=== PATIENT | male | born 1930 | race Caucasian/White ===

== ENCOUNTER 2018-07-22 17:14 | Emergency (ER) | payer OTHER ==
--- NOTE | 2018-07-22 17:26 | EDPHY ---
H & P Time Seen by Provider: 07/22/18 17:16 HPI/ROS: CHIEF COMPLAINT: Chest pain HISTORY OF PRESENT ILLNESS: The patient is an 87-year-old man with history of COPD and myocardial infarction 20 years ago who comes to the emergency department complaining of left anterior chest pain that began about 3 hr ago. He had just finished helping his to the bathroom but states he did not injure it. It does not hurt with movement or palpation. He denies shortness of breath. No recent fevers. No GI symptoms. No palpitations, no lightheadedness. Severity: Moderate Modifying factors: None REVIEW OF SYSTEMS: Constitutional: denies: chills, fever, recent illness, recent injury EENTM: denies: blurred vision, double vision, nose congestion Respiratory: denies: cough, shortness of breath Cardiac: See HPI Gastrointestinal/Abdominal: denies: abdominal pain, diarrhea, nausea, vomiting, blood streaked stools Genitourinary: denies: dysuria, frequency, hematuria, pain Musculoskeletal: denies: joint pain, muscle pain Skin: denies: lesions, rash, jaundice, bruising Neurological: denies: headache, numbness, paresthesia, tingling, dizziness, weakness Hematologic/Lymphatic: denies: blood clots, easy bleeding, easy bruising Immunologic/allergic: denies: HIV/AIDS, transplant 10 systems reviewed and negative except as noted EXAM: GENERAL: Well-appearing, well-nourished and in no acute distress. HEAD: Atraumatic, normocephalic. EYES: Pupils equal round and reactive to light, extraocular movements intact, sclera anicteric, conjunctiva are normal. ENT: TMs normal, nares patent, oropharynx clear without exudates. Moist mucous membranes. NECK: Normal range of motion, supple without lymphadenopathy or JVD. LUNGS: Breath sounds clear to auscultation bilaterally and equal. No wheezes rales or rhonchi. HEART: Regular rate and rhythm without murmurs, rubs or gallops. ABDOMEN: Soft, nontender, normoactive bowel sounds. No guarding, no rebound. No masses appreciated. BACK: No CVA tenderness, no spinal tenderness, step-offs or deformities EXTREMITIES: Normal range of motion, no pitting or edema. No clubbing or cyanosis. NEUROLOGICAL: Cranial nerves II through XII grossly intact. Normal speech, normal gait. 5/5 strength, normal movement in all extremities, normal sensation , normal reflexes PSYCH: Normal mood, normal affect. SKIN: Warm, dry, normal turgor, no visible rashes or lesions. Source: Patient Exam Limitations: No limitations - Medical/Surgical History Hx Chronic Respiratory Disease: Yes Hx Diabetes: No Hx Cardiac Disease: Yes Hx Renal Disease: No Hx Cirrhosis: No Hx Alcoholism: No Hx HIV/AIDS: No - Family History Significant Family History: No pertinent family hx - Social History Smoking Status: Former smoker Alcohol Use: Sober Drug Use: None Constitutional: Initial Vital Signs Temperature (C) 36.5 C 07/22/18 17:31 Heart Rate 63 07/22/18 17:31 Respiratory Rate 16 07/22/18 17:31 Blood Pressure 144/89 H 07/22/18 17:31 O2 Sat (%) 92 07/22/18 17:31 O2 Delivery Mode Room Air Allergies/Adverse Reactions: No Known Allergies Allergy (Unverified 07/22/18 17:27) Home Medications: Medication Instructions Recorded Augmentin 125-31.25 mg/5 ml 07/22/18 Cyclobenzaprine HCl 07/22/18 Gaviscon Es Tablet Chew 07/22/18 Lyrica 07/22/18 Metamucil 07/22/18 Milk of Magnesia 07/22/18 PROVENTIL HFA 07/22/18 Sertraline HCl 07/22/18 Tylenol 07/22/18 Medical Decision Making - Diagnostics EKG Interpretation: An EKG obtained and was read and documented in trace view. Please see trace view for full reading and report. Sinus rhythm, no acute ischemic changes Imaging: Discussed imaging studies w/ manager call Radiologist ED Course/Re-evaluation: The patient's lab work and x-rays are reassuring. We discussed options. His HEART score is 3, low risk. Daughter is here now. We discussed the risks and benefits engaged in shared decision making and agreed to obtain a 2nd troponin 2 hr after the 1st. If this is negative he would prefer to go home and follow up with Cardiology for stress test in the outpatient setting. He is currently asymptomatic. He states that he has been asymptomatic ever since he got here and even at the facility. He is a little more clear on the history now and states that he had a near-syncope episode after taking his to the bathroom. It was associated with chest pain. It only lasted for about 30 sec and then resolved completely. I did offer admission but he declined this. 8:00 p.m. the patient remains asymptomatic. His repeat troponin is negative. He is eager to go home. We discussed follow-up with cardiology in the next 72 hr for stress testing. He and his family are happy with this plan. Differential Diagnosis: Partial list of the Differential diagnosis considered include but were not limited to; syncope, presyncope, acute coronary disease, arrhythmia and although unlikely based on the history and physical exam, I also considered infection, head injury, seizure, dehydration. I discussed these differential diagnoses and the plan with the patient as well as the usual and expected course. The patient understands that the diagnosis is provisional and that in medicine we are not always correct and that further workup is often warranted. Usual and customary warnings were given. All of the patient's questions were answered. The patient was instructed to return to the emergency department should the symptoms at all worsen or return, otherwise to followup with the physician as we discussed. - Data Points Laboratory Results: Laboratory Results 07/22/18 17:20 07/22/18 17:20 Point of Care Test Results: Chemistry 07/22/18 07/22/18 19:22 17:26 POC Troponin I 0.01 ng/mL ng/mL 0.01 ng/mL ng/mL (0.00-0.08) (0.00-0.08) Departure - Departure Disposition: Home, Routine, Self-Care Clinical Impression: Pre-syncope Chest pain Qualifiers: Chest pain type: unspecified Qualified Code(s): R07.9 - Chest pain, unspecified Condition: Fair Instructions: Chest Pain (ED), Near Syncope (ED) Referrals: Mariama Jane MD [Primary Care Provider] - As per Instructions
--- NOTE | 2018-07-22 17:39 | CPEKG ---
Test Reason : OPEN Blood Pressure : / mmHG Vent. Rate : 062 BPM Atrial Rate : 062 BPM P-R Int : 171 ms QRS Dur : 097 ms QT Int : 429 ms P-R-T Axes : 072 021 049 degrees QTc Int : 436 ms Sinus rhythm Confirmed by Kvng Leary ([id number]) on 07/22/2018 5:38:20 PM Referred By: Confirmed By:Kvng Leary
[2018-07-22 18:33] LABS: PLATELET COUNT 124 10^3/uL (150-400)
[2018-07-22 18:40] LABS: INR 0.96 (0.83-1.16)
[2018-07-22 20:23] VITALS: BP 180/92
== END 2018-07-22 20:45 | disposition home or self-care (01) ==
DX: R07.9 Chest pain, unspecified (principal); R55 Syncope and collapse; J44.9 Chronic obstructive pulmonary disease, unspecified; I25.2 Old myocardial infarction
CPT/HCPCS: 84484-PO

== ENCOUNTER 2018-07-26 17:17 | Inpatient (IN) | payer OTHER ==
--- NOTE | 2018-07-26 17:22 | EDPHY ---
H & P Time Seen by Provider: 07/26/18 17:22 HPI/ROS: CHIEF COMPLAINT: Dizziness HISTORY OF PRESENT ILLNESS: Patient had episode this past Tuesday of sudden onset of off balance at his facility. He was doing fine until today around 430 when his daughter was with him and suddenly started having trouble with his balance and staggering and trying to grab things on the wall. The patient says he still has dizziness. He can't describe it using any other words, but says it is worse when he moves his head or when he stands up. Not associated with nausea or headache or double vision or weakness or numbness in extremities or speech difficulty. Brought in by EMS, symptoms severe, unable to walk. REVIEW OF SYSTEMS: Eye: no change in vision ENT: no sore throat Cardiac: no chest pain or syncope Pulmonary: no cough or SOB Abdomen: no vomiting, diarrhea, abdominal pain Musculoskeletal: no back pain or neck pain Skin: no rash Neuro: no headache Constitutional: no fever : no urinary symptoms A comprehensive 10 point review of systems is otherwise negative aside from elements mentioned in the history of present illness. PAST MEDICAL HISTORY: Includes COPD, depression, mitral valve insufficiency, dementia. Peripheral neuropathy. Social history: Here with daughter General Appearance: Eyes closed but opens to voice. Cooperates with the exam. Eyes: No scleral icterus. Pupils equal reactive to light extraocular motion intact with nystagmus and reproduces symptoms looking to the right, nystagmus is horizontal. ENT, Mouth: Normal mucous membranes. Normal tympanic membranes. Respiratory: Normal respiratory effort, breath sounds equal, lungs are clear to auscultation. Cardiovascular: Regular rate and rhythm. Right carotid bruit. Gastrointestinal: Abdomen is soft and non tender. Neurological: Alert, face symmetric, normal motor and sensory in extremities. Can lift each leg independently off the bed, good can piler strength, no pronator drift, normal [id number] bilaterally. Speech fluent. Skin: Warm and dry, no rashes. Musculoskeletal: No peripheral edema. Psychiatric: Not agitated. Emergency Department course/MDM: Patient is disabling dizziness and unable to walk. Symptoms suggestive of peripheral vertigo but central vertebral basilar insufficiency also considered with right carotid murmur. Plan for CT head, EKG, labs, admission with angiography and Neurology consultation. 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 No stenosis or dissection in the posterior circulation. Smoking Status: Former smoker Constitutional: Initial Vital Signs Temperature (C) 36.8 C 07/26/18 17:22 Heart Rate 63 07/26/18 17:22 Respiratory Rate 18 07/26/18 17:22 Blood Pressure 118/61 07/26/18 17:22 O2 Sat (%) 85 L 07/26/18 17:22 O2 Delivery Mode Nasal Cannula O2 (L/minute) 2 Allergies/Adverse Reactions: No Known Allergies Allergy (Verified 07/26/18 17:22) Home Medications: Medication Instructions Recorded Acetaminophen [Tylenol 325mg (*)] 650 mg PO Q6 PRN 07/26/18 Albuterol [Proventil Inhaler HFA 1 - 2 puffs IH Q4H PRN 07/26/18 (*)] Aspirin EC [Aspirin EC 81 mg (*)] 81 mg PO DAILY 07/26/18 Atorvastatin Calcium [Lipitor 40 40 mg PO DAILY 07/26/18 mg (*)] Cyclobenzaprine [Flexeril 10 MG 10 mg PO BID PRN 07/26/18 (*)] Magnesium Carb/Aluminum Hydrox 2 each PO Q6H PRN 07/26/18 [Gaviscon Es Tablet Chew] Magnesium Hydroxide [Milk of 30 ml PO DAILY PRN 07/26/18 Magnesia] Pregabalin [Lyrica 50mg (*)] 50 mg PO BID 07/26/18 Psyllium Husk/Aspartame [Metamucil 3.4 gm PO DAILY PRN 07/26/18 Fiber Singles Packet] Sertraline HCl [Zoloft 50mg (*)] 50 mg PO DAILY 07/26/18 Medical Decision Making - Diagnostics EKG Interpretation: 12-lead EKG interpreted by me; official reading is in computer system. My interpretation is sinus rhythm rate 63 normal intervals and no ischemic changes Imaging Results: Imaging Impressions Head CT 07/26/18 17:43 Impression: Chronic mild paranasal sinus disease. Nothing acute identified. Results called to Dr. Reilly Lundy at 6:20 PM General information for patients regarding this examination can be found at [email or web address] If you have questions or comments about this report, please contact me at [phone] (hospital) or [phone] (cell). Chest X-Ray 07/26/18 18:43 Impression: Moderate bronchitis. Mild scarring or early infiltrate right lung base. Imaging: Discussed imaging studies w/ callisthenics instructor Radiologist Differential Diagnosis: Differential diagnosis considered for dizziness including but not limited to peripheral and central causes of vertigo, dissection or other vascular, orthostatic causes including dehydration, and blood loss. Consult/Admit Bed Type: [place] [id number] - Data Points Laboratory Results: Laboratory Results 07/26/18 18:15 07/26/18 18:15 07/26/18 07/26/18 07/26/18 18:20 18:15 18:15 WBC 5.49 10^3/uL 10^3/uL (3.80-9.50) RBC 4.16 10^6/uL L 10^6/uL (4.40-6.38) Hgb 12.4 g/dL L g/dL (13.7-17.5) Hct 37.0 % L % (40.0-51.0) MCV 88.9 fL fL (81.5-99.8) MCH 29.8 pg pg (27.9-34.1) MCHC 33.5 g/dL g/dL (32.4-36.7) RDW 15.5 % H % (11.5-15.2) Plt Count 115 10^3/uL L 10^3/uL (150-400) MPV 9.8 fL fL (8.7-11.7) Neut % (Auto) 62.4 % % (39.3-74.2) Lymph % (Auto) 27.5 % % (15.0-45.0) [place] % (Auto) 5.8 % % (4.5-13.0) Eos % (Auto) 2.9 % % (0.6-7.6) Baso % (Auto) 0.7 % % (0.3-1.7) Nucleat RBC Rel Count 0.0 % % (0.0-0.2) Absolute Neuts (auto) 3.42 10^3/uL 10^3/uL (1.70-6.50) Absolute Lymphs (auto) 1.51 10^3/uL 10^3/uL (1.00-3.00) Absolute Monos (auto) 0.32 10^3/uL 10^3/uL (0.30-0.80) Absolute Eos (auto) 0.16 10^3/uL 10^3/uL (0.03-0.40) Absolute Basos (auto) 0.04 10^3/uL 10^3/uL (0.02-0.10) Absolute Nucleated RBC 0.00 10^3/uL 10^3/uL (0-0.01) Immature Gran % 0.7 % % (0.0-1.1) Immature Gran # 0.04 10^3/uL 10^3/uL (0.00-0.10) Sodium 137 mEq/L mEq/L (135-145) Potassium 4.0 mEq/L mEq/L (3.3-5.0) Chloride 102 mEq/L mEq/L (97-110) Carbon Dioxide 22 mEq/l mEq/l (22-31) Anion Gap 13 mEq/L mEq/L (8-16) BUN 36 mg/dL H mg/dL (7-23) Creatinine 1.4 mg/dL H mg/dL (0.7-1.3) Estimated GFR 48 Glucose 134 mg/dL H mg/dL (70-100) Calcium 9.1 mg/dL mg/dL (8.5-10.4) POC Troponin I 0.00 ng/mL ng/mL (0.00-0.08) Point of Care Test Results: Chemistry 07/26/18 18:20 POC Troponin I 0.00 ng/mL ng/mL (0.00-0.08) Departure - Departure Disposition: [facility] Acute Clinical Impression: Dizziness Condition: Fair
[2018-07-26 18:37] LABS: PLATELET COUNT 115 10^3/uL (150-400)
--- NOTE | 2018-07-26 18:45 | CPEKG ---
Test Reason : OPEN Blood Pressure : / mmHG Vent. Rate : 063 BPM Atrial Rate : 062 BPM P-R Int : 166 ms QRS Dur : 092 ms QT Int : 431 ms P-R-T Axes : 083 045 065 degrees QTc Int : 442 ms Sinus rhythm Confirmed by Reilly Lundy ([id number]) on 07/26/2018 6:44:53 PM Referred By: Confirmed By:Reilly Lundy
[2018-07-26] MEDS ORDERED: IOPAMIDOL (ISOVUE 370) 100 ML BTL IV ONE (20:04)
[2018-07-26] MEDS ORDERED: ONDANSETRON DISINTEGRATING 4 MG TAB PO PRN (22:12)
[2018-07-26] MEDS ORDERED: ONDANSETRON 4 MG/2 ML VIAL IVP PRN (22:12)
[2018-07-26] MEDS ORDERED: ACETAMINOPHEN 325 MG TAB PO PRN (22:12)
--- NOTE | 2018-07-26 22:57 | PDGENHP ---
History and Physical - Chief Complaint Dizzy spells - History of Present Illness 87 yo M w/ hx of CAD presents with dizzy spells. The patient tells me he has been having these dizzy spells almost daily for about a year. He describes them as brief bouts of a spinning sensation that causes him to stumble. These episodes only last 2-3 seconds per his report. He denies associated symptoms such as chest pain or shortness of breath. He does describe an unrelated lower sternal/epi-gastric, squeezing discomfort that has been happening for the last few weeks. He states this seems random and happens a couple of times per day. He saw Dr. Duke in the office today and described these symptoms to him. Dr. Duke also noted a carotid bruit. He advised patient and daughter to go to the ED if he had another dizzy spell. He did in fact have another dizzy spell today so he was brought in to the ED for evaluation. At the time of my evaluation the patient is asymptomatic. He is resting comfortably in bed alert and fully oriented. Case discussed with Dr. Badillo; records reviewed in EMR and [employer] History Information - Allergies/Home Medication List Allergies/Adverse Reactions: No Known Allergies Allergy (Verified 07/26/18 17:22) Home Medications: Acetaminophen [Tylenol 325mg (*)] 650 mg PO Q6 PRN 07/26/18 [Last Taken Unknown] Albuterol [Proventil Inhaler HFA (*)] 1 - 2 puffs IH Q4H PRN 07/26/18 [Last Taken Unknown] Aspirin EC [Aspirin EC 81 mg (*)] 81 mg PO DAILY 07/26/18 [Last Taken Unknown] Atorvastatin Calcium [Lipitor 40 mg (*)] 40 mg PO DAILY 07/26/18 [Last Taken Unknown] Cyclobenzaprine [Flexeril 10 MG (*)] 10 mg PO BID PRN 07/26/18 [Last Taken Unknown] Magnesium Carb/Aluminum Hydrox [Gaviscon Es Tablet Chew] 2 each PO Q6H PRN 07/26 [Last Taken Unknown] Magnesium Hydroxide [Milk of Magnesia] 30 ml PO DAILY PRN 07/26/18 [Last Taken Unknown] Pregabalin [Lyrica 50mg (*)] 50 mg PO BID 07/26/18 [Last Taken Unknown] Psyllium Husk/Aspartame [Metamucil Fiber Singles Packet] 3.4 gm PO DAILY PRN 01/08 [Last Taken Unknown] Sertraline HCl [Zoloft 50mg (*)] 50 mg PO DAILY 07/26/18 [Last Taken Unknown] I have personally reviewed and updated: family history, medical history - Past Medical History coronary artery disease, COPD - Surgical History Additional surgical history: Bilateral "gland tumor" removal - Family History Additional family history: Mother and daughter have epilepsy - Social History Smoking Status: Former smoker Review of Systems Review of Systems: ROS: 10pt was reviewed & negative except for what was stated in HPI & below Physical Exam Physical Exam: Temp Pulse Resp BP Pulse Ox 36.8 C 71 17 162/85 H 93 07/26/18 22:33 07/26/18 22:33 07/26/18 22:33 07/26/18 22:33 07/26/18 22:33 O2 (L/minute) 2 Constitutional: no apparent distress, not in pain Eyes: PERRL, EOMI Ears, Nose, Mouth, Throat: moist mucous membranes, no oral mucosal ulcers Cardiovascular: regular rate and rhythym, systolic murmur Respiratory: no respiratory distress, clear to auscultation Gastrointestinal: normoactive bowel sounds, soft, non-tender abdomen Skin: warm, normal color Musculoskeletal: full muscle strength, no muscle tenderness Neurologic: AAOx3, CN II-XII Intact Psychiatric: interacting appropriately, not anxious Lab Data & Imaging Review 07/26/18 18:15 07/26/18 18:15 WBC 5.49 10^3/uL (3.80-9.50) 07/26/18 18:15 RBC 4.16 10^6/uL (4.40-6.38) L 07/26/18 18:15 Hgb 12.4 g/dL (13.7-17.5) L 07/26/18 18:15 Hct 37.0 % (40.0-51.0) L 07/26/18 18:15 MCV 88.9 fL (81.5-99.8) 07/26/18 18:15 MCH 29.8 pg (27.9-34.1) 07/26/18 18:15 MCHC 33.5 g/dL (32.4-36.7) 07/26/18 18:15 RDW 15.5 % (11.5-15.2) H 07/26/18 18:15 Plt Count 115 10^3/uL (150-400) L 07/26/18 18:15 MPV 9.8 fL (8.7-11.7) 07/26/18 18:15 Neut % (Auto) 62.4 % (39.3-74.2) 07/26/18 18:15 Lymph % (Auto) 27.5 % (15.0-45.0) 07/26/18 18:15 Brewster % (Auto) 5.8 % (4.5-13.0) 07/26/18 18:15 Eos % (Auto) 2.9 % (0.6-7.6) 07/26/18 18:15 Baso % (Auto) 0.7 % (0.3-1.7) 07/26/18 18:15 Nucleat RBC Rel Count 0.0 % (0.0-0.2) 07/26/18 18:15 Absolute Neuts (auto) 3.42 10^3/uL (1.70-6.50) 07/26/18 18:15 Absolute Lymphs (auto) 1.51 10^3/uL (1.00-3.00) 07/26/18 18:15 Absolute Monos (auto) 0.32 10^3/uL (0.30-0.80) 07/26/18 18:15 Absolute Eos (auto) 0.16 10^3/uL (0.03-0.40) 07/26/18 18:15 Absolute Basos (auto) 0.04 10^3/uL (0.02-0.10) 07/26/18 18:15 Absolute Nucleated RBC 0.00 10^3/uL (0-0.01) 07/26/18 18:15 Immature Gran % 0.7 % (0.0-1.1) 07/26/18 18:15 Immature Gran # 0.04 10^3/uL (0.00-0.10) 07/26/18 18:15 Sodium 137 mEq/L (135-145) 07/26/18 18:15 Potassium 4.0 mEq/L (3.3-5.0) 07/26/18 18:15 Chloride 102 mEq/L (97-110) 07/26/18 18:15 Carbon Dioxide 22 mEq/l (22-31) 07/26/18 18:15 Anion Gap 13 mEq/L (8-16) 07/26/18 18:15 BUN 36 mg/dL (7-23) H 07/26/18 18:15 Creatinine 1.4 mg/dL (0.7-1.3) H 07/26/18 18:15 Estimated GFR 48 07/26/18 18:15 Glucose 134 mg/dL (70-100) H 07/26/18 18:15 Calcium 9.1 mg/dL (8.5-10.4) 07/26/18 18:15 POC Troponin I 0.00 ng/mL (0.00-0.08) 07/26/18 18:20 Imaging Review: Imaging Impressions Head CT 07/26/18 17:43 Impression: Chronic mild paranasal sinus disease. Nothing acute identified. Results called to Dr. Reilly Lundy at 6:20 PM General information for patients regarding this examination can be found at [email or web address]. If you have questions or comments about this report, please contact me at [phone] (hospital) or [phone] (cell). Chest X-Ray 07/26/18 18:43 Impression: Moderate bronchitis. Mild scarring or early infiltrate right lung base. Head CTA 07/26/18 19:20 Impression: 1. Evidence of atherosclerotic change of the carotid bulb and proximal internal carotid artery bilaterally, with 50 to 60% stenosis. On the right, there is an irregular ulcerated plaque. Approximately 50% stenosis at the origin of the left common carotid artery. Approximately 50% stenosis at the origin of the vertebral arteries bilaterally. 2. 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 3. 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 4. Pleuroparenchymal scarring bilaterally, more severe in the right upper lobe toward the apex. Evidence of prior granulomatous disease. CT Angiogram of the Brain Clinical Indications: Dizzy, right carotid bruit, ataxia.. Technique: CT angiogram of the brain was performed, with the uneventful intravenous administration of 100 mL Isovue-370 contrast. Multiplanar reconstructions including 3D reconstructions performed and evaluated on [employer] workstation in order to better evaluate the false pass of De Jesus vessels. Images were manipulated by the radiologist at the computer workstation. Dose reduction techniques were utilized. Findings: Major vessels of the false pass of De Jesus are adequately displayed, demonstrating no evidence of aneurysm, vascular malformation, flow-limiting stenosis, or occlusion. Bilateral cavernous internal carotid arteries and vertebrobasilar system demonstrates no evidence of flow-limiting stenosis, aneurysm, occlusion, or dissection. Superior sagittal sinus, transverse sinuses , and major veins demonstrate no evidence of intraluminal thrombi. Vascular calcifications indicating intracranial atherosclerotic disease, without flow- limiting stenosis. Impression: Intracranial atherosclerotic change, without flow-limiting stenosis. Results called and discussed with Reilly Lundy M.D., on July 26, 2018 at 2129. Measurement of carotid stenosis is based on the residual internal carotid diameter with [place] Symptomatic Carotid Endarterectomy Trial (NASCET) based stenosis levels. Neck CTA 07/26/18 19:20 Impression: 1. Evidence of atherosclerotic change of the carotid bulb and proximal internal carotid artery bilaterally, with 50 to 60% stenosis. On the right, there is an irregular ulcerated plaque. Approximately 50% stenosis at the origin of the left common carotid artery. Approximately 50% stenosis at the origin of the vertebral arteries bilaterally. 2. 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 3. 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 4. Pleuroparenchymal scarring bilaterally, more severe in the right upper lobe toward the apex. Evidence of prior granulomatous disease. CT Angiogram of the Brain Clinical Indications: Dizzy, right carotid bruit, ataxia.. Technique: CT angiogram of the brain was performed, with the uneventful intravenous administration of 100 mL Isovue-370 contrast. Multiplanar reconstructions including 3D reconstructions performed and evaluated on [employer] workstation in order to better evaluate the false pass of De Jesus vessels. Images were manipulated by the radiologist at the computer workstation. Dose reduction techniques were utilized. Findings: Major vessels of the false pass of De Jesus are adequately displayed, demonstrating no evidence of aneurysm, vascular malformation, flow-limiting stenosis, or occlusion. Bilateral cavernous internal carotid arteries and vertebrobasilar system demonstrates no evidence of flow-limiting stenosis, aneurysm, occlusion, or dissection. Superior sagittal sinus, transverse sinuses , and major veins demonstrate no evidence of intraluminal thrombi. Vascular calcifications indicating intracranial atherosclerotic disease, without flow- limiting stenosis. Impression: Intracranial atherosclerotic change, without flow-limiting stenosis. Results called and discussed with Reilly Lundy M.D., on July 26, 2018 at 2129. Measurement of carotid stenosis is based on the residual internal carotid diameter with [place] Symptomatic Carotid Endarterectomy Trial (NASCET) based stenosis levels. Visualized and Interpreted EKG results: Yes EKG Interpretation: Positive for: normal sinsus rhythm Assessment & Plan Assessment: 87 yo M w/ hx of CAD and COPD presents with dizzy spells. Plan: 1. Dizzy spells - Patient describes these as brief dizzy spells causing him to stumble; they have been occurring almost daily for about a year. He denies associated symptoms. He has no persistent neurologic symptoms during my evaluation. CTH in the ED revealed no acute changes but CTA Head/Neck did show bilateral 50-60% stenosis, irregular plaque on the R, and carotid body tumor on the L. It is unclear if these could be contributing. Noting hx of CAD, cardiac etiologies could also be contributing. - Admit for observation - Monitor on telemetry - Obtain MRI and TTE for further evaluation - Neurology consultation placed 2. Chest discomfort - Atypical lower sternal/epi-gastric, "squeezing" discomfort with seemingly random onset. This has been presents for 2-3 weeks per patient and has no clear association with his dizzy spells. He does have a history of CAD with SC in the 1970's. ECG (personally reviewed/interpreted) reveals no signs of ischemia; troponin negative. 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 - I discussed case with Dr. Trammell of general surgery who suggested contacting Dr. Guillermo Oh during daytime hours tomorrow to discuss management options 4. CAD - Hx of SC in the 1970's. - Continue ASA, statin 5. COPD - No evidence of acute exacerbation. - Continue albuterol PRN Diet - Regular Code - Full Ppx - SCDs Dispo - Admit under observation status
[2018-07-26] MEDS ORDERED: NS 1,000 ML IV SCH (23:00)
[2018-07-27 05:05] LABS: PLATELET COUNT 101 10^3/uL (150-400)
[2018-07-27] MEDS ORDERED: ALBUTEROL 60 PUFFS/8 GM MDI IH PRN (07:33)
--- NOTE | 2018-07-27 08:25 | HOSPPROG ---
Hospitalist Progress Note Assessment/Plan: 87 yo M w/ hx of CAD and COPD presents with dizzy spells. Reviewed his care with Dr Good who admitted Azeb last night. Today is my first encounter w the patient, chart reviewed. *dizzy spells -awaiting MRI -patient takes prn Flexeril which may make these symptoms worse -also, has some underlying anemia -CT of head showed nothing acute -CTA of head and neck showed bilateral 50-60% stenosis, irregular plaque on the r and carotid body tumor on the left -MRI and echo pending -neurology to see -check orthostatics -spoke w his daughter and he has been dizzy for year *chest discomfort -EKG shows no ischemia -further review of echo -first trop negative *carotid stenosis -will f/u with Dr Oh, needs a CEA -plan is for Tuesday *carotid body tumor -reviewed this w Dr Oh, he is recommending a angiogram to get a biopsy and embolize if he were to have surgery -updated his daughter Elina to further discuss *CAD -continue ASA and statin -hx of WA in the s -sees Dr Duke in the OP setting -will need evaluation prior to surgery *COPD -no s/sx of exacerbation *Plan: MRI and Echo pending, reviewed tele and he is in sinus rhythm; poss dc later today after all studies are finished Subjective: Azeb wants to go home today, has no complaints. Objective: Vital Signs Temp Pulse Resp BP Pulse Ox 36.8 C 60 14 126/62 H 93 07/27/18 07:42 07/27/18 07:42 07/27/18 07:42 07/27/18 07:42 07/27/18 07:42 Laboratory Results 07/27/18 04:30 07/27/18 04:30 - Physical Exam Constitutional: no apparent distress, appears nourished, not in pain Eyes: PERRL Ears, Nose, Mouth, Throat: hearing normal Cardiovascular: regular rate and rhythym, carotid bruit (right side) Respiratory: no respiratory distress Skin: warm Musculoskeletal: full muscle strength Neurologic: AAOx3, CN II-XII Intact, No facial droop Psychiatric: poor memory ICD10 Worksheet Patient Problems: Problems Problem Status Onset Dizziness Acute Chest pain Acute Pre-syncope Acute
[2018-07-27] MEDS: PREGABALIN 50 MG CAP PO SCH ×2 (08:27→20:17)
[2018-07-27] MEDS: ATORVASTATIN CALCIUM 40 MG TAB PO SCH (08:27)
[2018-07-27] MEDS: SERTRALINE HCL 50 MG TAB PO SCH (08:27)
[2018-07-27] MEDS: ASPIRIN EC 81 MG TAB PO SCH (08:27)
[2018-07-27] MEDS ORDERED: PSYLLIUM METAMUCIL 1 PKT PO PRN (09:00)
--- NOTE | 2018-07-27 09:46 | ASMTLACE ---
CARLOS Acuity / Level of Answers: Yes Care: Did the patient have an inpatient admission? Comorbidities - select Answers: Chronic pulmonary disease all that apply Coronary Artery Disease Dementia # of Emergency department Answers: 1-2 visits in the last 6 months Social determinants Answers: Mental health diagnosis (anxiety, depression, pers onality disorders, etc.) Score: 14 Date Signed: 07/27/2018 09:45 AM Electronically Signed By:Ina Pascual
--- NOTE | 2018-07-27 10:06 | GCON ---
NEUROLOGY CONSULT REFERRING PHYSICIAN: August Good MD CHIEF COMPLAINT: Dizzy spells. HISTORY OF PRESENT ILLNESS: The patient is a very pleasant 87-year-old gentleman who has been having symptoms of 3-5 seconds of lightheadedness on a daily basis for the last 1 year. Yesterday however, he was apparently at his certified pharmacist assistant's office and described the symptoms and was found to have a carotid bruit and was instructed to come to the emergency department. CT head showed nothing acute. He had angiogram of the head and neck. Angiography of the neck showed bilateral 50% to 60% stenosis on the right. There was some irregular ulcerated plaque noted. There was also a mass at the left carotid bifurcation suggestive of a carotid body tumor. Angiography of the brain showed atherosclerosis without flow-limiting stenosis. The patient, himself, describes no other problems or symptoms outside of the 3-5 second lightheadedness feelings without aggravating or alleviating factors. On initial evaluation, the patient was also found to be anemic. In addition he is on daily muscle relaxants which could cause the symptoms REVIEW OF SYSTEMS: Ten-point review of system was done, only pertinent to the HPI. PAST MEDICAL, SOCIAL, FAMILY HISTORY/HOME MEDICATIONS/ALLERGIES: See Dr. Good's note. PHYSICAL EXAMINATION: VITAL SIGNS: Blood pressure 126/62, temperature 36.8, heart rate 60. GENERAL: The patient is awake, alert in no acute distress. NEURO: Cranial nerve exam 2 through 7 is normal. Motor exam: Normal strength , tone, and reflexes throughout. Sensory normal to light touch. Coordination is normal in all extremities. IMPRESSION/PLAN: 1. Dizzy spells. 2. Carotid body tumor. 3. Carotid atherosclerosis. 4. Anemia. 5. Psychotropic medication use. The patient's dizzy spells are somewhat nonspecific and may be related to multiple etiologies. The patient is on daily muscle relaxant, which could be tapered off to see if this improves or resolves his spells. I think this would be the first change in medication. In addition, anemia could cause these spells. I defer to Hospital Medicine on further evaluation and treatment of this. Finally, the patient does have some carotid atherosclerosis and a left-sided lesion suggestive of a carotid body tumor. He does not describe focal transient ischemic attacks referable to either carotid at this point; however, he has seen surgery, Dr. Oh, I would defer to Dr. Oh regarding further management of his carotid atherosclerosis in terms of an interventional standpoint and further evaluation and treatment of the carotid lesion. In the interim, he certainly would need to be on an anti-platelet along with statin therapy for vascular prophylaxis. Further vascular surgery workup could be done as an inpatient or outpatient, I would defer to that service. I understand he may be discharging later today. I would be happy to see him as an outpatient and will arrange for that in 6-8 weeks to review if symptoms have improved off muscle relaxants. No further recommendations now. Plan discussed in detail with the hospitalist team and surgery team. 45 total minutes floor time reviewing imaging, history, direct counseling, and coordination of care. /[id number]/MODL MTDD
--- NOTE | 2018-07-27 11:25 | ASMTCMCOM ---
CM Note CM Note Notes: CM reviewed pt's chart for d/c planning. Pt is a 87y/o male with hx of CAD who presented at the ED with dizzy spells that make him stumble. These episodes last 2-3 seconds and have been present for the last year. Pt presented to the ED with chest pain on 07/22/2018. 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 He also c/o an unrelated lower sternal/epigastric, squeezing discomfort that has been happening for the last few weeks. He states this seems random and occurs a couple of times per day. Prior to presenting to the ED he saw his physician who noted a carotid bruit. Pt is being d/siri today and will return home with no CM needs. Per hospitalist, he will return Tuesday for surgery on his carotid. D/C Summary: Independent Date Signed: 07/27/2018 11:23 AM Electronically Signed By:Latasha Whitten
--- NOTE | 2018-07-27 11:33 | ASMTLACE ---
LACE Length of stay for Answers: Less than 1 day current admission Acuity / Level of Answers: Yes Care: Did the patient have an inpatient admission? Comorbidities - select Answers: Chronic pulmonary disease all that apply Coronary Artery Disease Dementia # of Emergency department Answers: 1-2 visits in the last 6 months Social determinants Answers: Mental health diagnosis (anxiety, depression, pers onality disorders, etc.) Score: 14 Date Signed: 07/27/2018 11:24 AM Electronically Signed By:Latasha Whitten
--- NOTE | 2018-07-27 13:30 | ECHO ---
[email or web address] [address] [address] Main: [phone] Fax: Transthoracic Echocardiogram Name: RADHA WINTER MR#: [id number] Study Date: 07/27/2018 Study Time: 11:41 AM Date of : 1930 Age: 87 year(s) Height: 182.9 cm (72 in.) Weight: 86.18 kg (190 lb.) BSA: 2.08 m2 Gender: Male Examination: Echo with Agitated Saline Indication: dizzy spells, hx cad Image Quality: Adequate Contrast: I.V. dose of agitated saline Requested by: August Greene BP: 110 mmHg/42 mmHg Heart Rate: Rhythm: Indication: dizzy spells, hx cad Procedure Staff Comptroller: Charisma Bryant [facility] Reading Physician: Juanjo Damon MD Requesting Provider: Conclusions: Normal size left ventricle. Normal global systolic LV function. EF is 71 %. No regional wall motion abnormality. Grade 2 diastolic dysfunction (pseudonormalized LV filling pattern). An agitated saline study was performed and was negative for intracardiac shunting. Trivial to mild mitral regurgitation. Mild tricuspid regurgitation is present. Right ventricular systolic pressure measures 40mmHg. Measurements: Chambers Valvular Assessment AV/MV Valvular Assessment TV/PV Normal Normal Normal Name Value Range Name Value Range Name Value Range Ao Marcela (MM): 3.4 cm (2.2 cm-3.7 AV Vmax: 1.77 m/s (1 m/s-1.7 TR Vmax: 2.97 mm/s ( - ) cm) m/s) TR PGmax: 35 mmHg ( - ) IVSd (2D): 1.1 cm (0.6 cm-1.1 AV maxP mmHg ( - ) syst. PAP: 40 mmHg ( - ) cm) LVOT Vmax: 1.07 m/s (0.7 m/s-1.1 PV Vmax: 1.16 m/s (0.6 m/s-0.9 LVDd (2D): 4.8 cm (4.2 cm-5.9 m/s) m/s) cm) AKOSUA (Vmax): 2.1 cm2 ( - ) PV PGmax: 5 mmHg ( - ) LVDs (2D): 3.3 cm (2.1 cm-4 MV E Vmax: 0.80 m/s ( - ) cm) MV A Vmax: 0.61 m/s ( - ) LVPWd (2D): 0.9 cm (0.6 cm-1 MV E/A: 1.31 ( - ) cm) LVOTd 2.1 cm 2.1 cm mm LVEF (BP): 71 % (>=55 %) RVDd(2D): 3.0 cm (1.9 cm-3.8 cmmm) Continued Measurements: Patient: RADHA WINTER Study Date: 07/27/2018 Page 1 of 2 11:41 AM Chambers Valvular Assessment AV/MV Valvular Assessment TV/PV Name Value Name Value Name Value LADs Lon.0 cm MV DecTime: 197 m/s CVP (est.): 5 mmHg LA Area: 25.5 cm2 MV E' Septal: 0.07 m/s LA Volume: 74 ml MV E/E' Septal: 11.10 LA Volume Index: 35.6 ml/m2 MV E/E' Lateral: 11.10 TAPSE: 2.6 cm RA Area: 15.3 cm2 Findings: Left Ventricle: Normal size left ventricle. Borderline concentric LV hypertrophy. Normal global systolic LV function. EF is 71 %. No regional wall motion abnormality. Grade 2 diastolic dysfunction (pseudonormalized LV filling pattern). Right Ventricle: Normal size right ventricle. Normal RV function. Left Atrium: An agitated saline study was performed and was negative for intracardiac shunting. Right Atrium: The right atrium is normal in size. Mitral Valve: The mitral valve is normal in appearance and function. Trivial to mild mitral regurgitation. No mitral stenosis is present. Aortic Valve: The aortic valve is tri-leaflet and functions normally. There is no aortic valve regurgitation. No aortic valve stenosis is present. Tricuspid Valve: The tricuspid valve is normal in appearance and function. Mild tricuspid regurgitation is present. Right ventricular systolic pressure measures 40mmHg. The pulmonary artery pressure is mildly increased. Pulmonic Valve: Pulmonary valve not well visualized. Trivial pulmonic valve regurgitation. Aorta: Normal size aortic root measuring 3.4 cm. IVC: Normal size and course of the IVC. Pericardium: No pericardial effusion. (No Signature Object) Patient: RADHA WINTER Study Date: 07/27/2018 Page 2 of 2 11:41 AM [id number]
--- NOTE | 2018-07-27 14:29 | ASMTCMCOM ---
CM Note CM Note Notes: Pt is now being kept overnight. He is having an MRI today and will be receiving a stress test tomorrow. Pt lives at [facility], independently, with his . He will be returning there when d/c'ed. CM to follow if needs change. D/C Plan: Independent at [facility]. Date Signed: 07/27/2018 02:29 PM Electronically Signed By:Latasha Whitten
--- NOTE | 2018-07-27 14:38 | GCON ---
CHIEF COMPLAINT: Dizziness. HISTORY OF PRESENT ILLNESS: This is an 87-year-old male with a history of coronary artery disease and COPD who presented to the emergency room yesterday complaining of dizzy spells. He reports that he has been having these dizzy spells very frequently for the past year. They last for about 2-3 seconds each and cause a spinning sensation that causes him to stumble. He underwent a head and neck CT angiogram at the time of admission. These revealed evidence of atherosclerotic change of the carotid bulb and proximal internal carotid artery bilaterally with 50%-60% stenosis. On the right side, there is an irregular ulcerated plaque. 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 At this time, the patient reports that he feels well. He denies any current dizziness, chest pain, shortness of breath, or stroke-like symptoms. PAST MEDICAL HISTORY: Coronary artery disease, COPD. PAST SURGICAL HISTORY: Bilateral "gland tumor" removal. FAMILY HISTORY: Noncontributory. SOCIAL HISTORY: Nonsmoker. MEDICATIONS: Tylenol, albuterol, aspirin 81 mg daily, atorvastatin 40 mg daily , cyclobenzaprine 10 mg b.i.d. as needed, Gaviscon ES tablet 2, milk of magnesia p.r.n., Lyrica 50 mg b.i.d., Metamucil fiber 3.4 g daily as needed, Zoloft 50 mg daily. REVIEW OF SYSTEMS: 10-point review of systems was performed and is negative, except for what is in the HPI. PHYSICAL EXAM: GENERAL: This is a very pleasant 87-year-old male sitting up in his hospital bed in no acute distress. HEENT: Normocephalic, atraumatic. Pupils are equal and round. No scleral icterus. Mucous membranes are moist. NECK: No cervical lymphadenopathy. Tenderness to palpation inferior to the angle of the mandible bilaterally. No palpable masses. CARDIOVASCULAR: Regular rate and rhythm. No clicks, murmurs, or rubs. Carotid bruit present on the right side, no carotid bruit present on the left side. RESPIRATORY: Clear to auscultation bilaterally. No increased work of breathing. ABDOMEN: Soft, nontender, nondistended. Normoactive bowel sounds. SKIN: Warm and dry. No rashes. MUSCULOSKELETAL: Moves all extremities equally, full muscle strength. NEUROLOGIC: He is alert and oriented x3. Cranial nerves 2-12 are grossly intact. PSYCHIATRIC: Appropriate mood and affect. IMPRESSION/PLAN: This is an 87-year-old male who is currently admitted to the hospital for episodes of dizziness. A head and neck CT angiogram upon admission revealed irregular ulcerated plaque in the right carotid artery. Also revealed a mass at the left carotid bifurcation that is suggestive of a carotid body tumor. This patient was seen by Dr. Oh and myself. The CT images were personally reviewed. Dr. Oh feels that the most pressing issue at this point is the stenosis and irregularity of the plaque in the patient's right carotid artery. We will plan for a right carotid endarterectomy on Tuesday. This patient does not need to be hospitalized through the weekend and can be a direct admit on Tuesday, if need be. 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 Given its location, it is relatively inaccessible to surgically excise. If it does need to be excised, Dr. Oh recommends that the patient undergo an angiogram and embolization due to the high vascularity of the mass prior to any surgery. The other option is to have the patient undergo a needle aspiration biopsy in Interventional Radiology. In any case, this mass is not an urgent concern, especially given the patient's age. We will plan for a right carotid endarterectomy surgery for Tuesday. We discussed all risks and options and the patient would like to proceed. Risks of surgery include, but are not limited to infection, bleeding, stroke, heart attack, and . Patient understands and wishes to proceed. /[id number]/MODL MTDD
--- NOTE | 2018-07-27 15:39 | GCON ---
DATE OF CONSULTATION: 07/27/2018 We are asked by the hospitalist to consult regarding upcoming carotid surgery and his cardiac status. HISTORY OF PRESENT ILLNESS: This is an 87-year-old male with a history of coronary artery disease an d dizzy spells over the last year. The episodes are typically brief, lasting up to 3-4 seconds. He was seen at [facility] by Dr. Mic Duke yesterday, July 26, 2018. He was noted to have a car otid bruit. He also has a history of coronary artery disease, having a heart attack in 1974. He rep orts having intermittent chest discomfort, the last time being 2 weeks ago. This was a left-sided dis comfort that started very intense and then let up. The duration of the episode was up to 15 minutes. He has not had further episodes since that time. He has been found to have carotid stenosis and is being currently worked up prior to surgery. He has had a CTA of the neck and head and a CT of the h ead. At time of my visit, he is feeling well. He has not felt dizzy while lying in bed, he has been able to answer my questions appropriately and is very talkative. He has recently had an EKG that tristan wed no indication of ischemia. He also had troponins drawn in the emergency room on 07/22/2018 that were negative. At this time, he is resting comfortably. PAST MEDICAL HISTORY: He has a history of coronary artery disease with DC, COPD, mitral valve insuff iciency, dementia, peripheral neuropathy. PAST SURGICAL HISTORY: Bilateral removal of a gland tumor. FAMILY HISTORY: No significant family history of coronary disease. SOCIAL HISTORY: Former tobacco abuse. No history of alcohol use. REVIEW OF SYSTEMS: A 10-point review of system was negative except that stated in the HPI. PHYSICAL EXAM: CONSTITUTIONAL: Well nourished, well developed, individual. EYES: Sclerae white. Pupils equal. NECK: No nodules or masses. RESPIRATORY: Breathing is nonlabored. Normal breath kenia nds on auscultation. No chest wall tenderness. CARDIOVASCULAR: Regular heart rate with normal rhyt hm. Systolic murmur noted. GASTROINTESTINAL: Abdomen soft and nontender. Bowel sounds are normal. No tenderness or guarding. SKIN: No rashes or lesions noted. NEURO: He is alert and oriented x3. PSYCHIATRIC: Interacting appropriately. IMPRESSION AND PLAN: It is recommended prior to surgery for his carotid stenosis that he have an ech ocardiogram to further evaluate his heart structure and valve. He will also need to have a nuclear s tress test to evaluate his reported chest pain with known past myocardial infarction. We will plan for an echocardiogram today, which has already been ordered and a Lexiscan nuclear stres s test, which will have to be done tomorrow as he has had caffeine today. This was discussed with eva parker and he is in agreement with this plan. If his echocardiogram and Lexiscan nuclear stress test are stable, he can proceed with the planned ca rotid surgery. Thank you very much for asking us to be a part of this individual's care. /[id number]/MODL
[2018-07-28] MEDS ORDERED: REGADENOSON 0.4 MG/5 ML SYR IVP ONE (08:58)
--- NOTE | 2018-07-28 09:54 | PDMN ---
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
[2018-07-28] MEDS: SERTRALINE HCL 50 MG TAB PO SCH (10:16)
[2018-07-28] MEDS: ASPIRIN EC 81 MG TAB PO SCH (10:16)
[2018-07-28] MEDS: ATORVASTATIN CALCIUM 40 MG TAB PO SCH (10:16)
[2018-07-28] MEDS: PREGABALIN 50 MG CAP PO SCH (10:16)
--- NOTE | 2018-07-28 11:16 | HOSPPROG ---
Hospitalist Progress Note Assessment/Plan: 87 yo M w/ hx of CAD and COPD presents with dizzy spells. *dizzy spells -patient takes prn Flexeril which may make these symptoms worse -also, has some underlying anemia -CT of head showed nothing acute -CTA of head and neck showed bilateral 50-60% stenosis, irregular plaque on the r and carotid body tumor on the left -MRI showed no acute ischemia but atrophy -has + orthostasis -has not been dizzy during this hospital stay -spoke w his daughter and he has been dizzy for year *chest discomfort -EKG shows no ischemia -further review of echo -first trop negative *carotid stenosis -will f/u with Dr Oh, needs a CEA -plan is for Tuesday *carotid body tumor -reviewed this w Dr Oh, he is recommending a angiogram to get a biopsy and embolize if he were to have surgery -updated his daughter Elina to further discuss *CAD -continue ASA and statin -hx of ME in the 1969's -sees Dr Duke in the OP setting -awaiting stress test results as well as echo *COPD -no s/sx of exacerbation *Plan: stop Flexeril, will evaluate his echo and stress test images; dc hopefully later today Subjective: Azeb has no complaints, anxious to be discharged. Objective: Vital Signs Temp Pulse Resp BP Pulse Ox 36.6 C 58 L 16 155/69 H 96 07/28/18 08:00 07/28/18 08:00 07/28/18 08:00 07/28/18 08:00 07/28/18 08:00 07/27/18 07/28/18 07/29/18 05:59 05:59 05:59 Intake Total 650 Balance 650 - Physical Exam Constitutional: no apparent distress, appears nourished, not in pain Eyes: PERRL Ears, Nose, Mouth, Throat: hearing normal Cardiovascular: regular rate and rhythym, carotid bruit (right) Respiratory: no respiratory distress Skin: warm Musculoskeletal: full muscle strength Neurologic: CN II-XII Intact, No weakness, No numbness, No pronator drift, No facial droop Psychiatric: interacting appropriately, poor memory ICD10 Worksheet Patient Problems: Problems Problem Status Onset Dizziness Acute Chest pain Acute Pre-syncope Acute
[2018-07-28 11:25] VITALS: BP 162/85
--- NOTE | 2018-07-28 11:43 | ASMTCMCOM ---
CM Note CM Note Notes: Received a call from Chauncey at , pt lives there with in their Memory Care apts. They help pt with medications and other minor cares. She requests dc paperwork, otherwise pt is discharging today without needs. DC Plan: [facility] Date Signed: 07/28/2018 11:43 AM Electronically Signed By:Mary Lujan RN
--- NOTE | 2018-07-28 13:31 | SOAPPROG ---
LANCE Progress Note Assessment/Plan: Assessment: NO REAL CHANGE TODAY. APPARENTLY DOING WELL WITH HIS CARDIAC EVALUATION RISKS AND OPTIONS FULLY DISCUSSED WITH THE PATIENT AND HIS DAUGHTER GABE WILL PLAN ON RIGHT CAROTID ENDARTERECTOMY ON TUESDAY AND THEN FURTHER EVALUATION DOWN THE LINE OF HIS LEFT NECK TUMOR NEURO EXAM INTACT HEENT BRUIT ON THE RIGHT CHEST CLEAR COR REGULAR RHYTHM IMPRESSION RIGHT CAROTID STENOSIS AND/OR DISSECTION Plan: RIGHT CAROTID ENDARTERECTOMY NEXT WEEK 07/28/18 13:29 Objective: Vital Signs Temp Pulse Resp BP Pulse Ox 36.6 C 63 18 162/85 H 91 L 07/28/18 11:23 07/28/18 11:23 07/28/18 11:23 07/28/18 11:23 07/28/18 11:23 07/27/18 07/28/18 07/29/18 05:59 05:59 05:59 Intake Total 650 Balance 650 ICD10 Worksheet Patient Problems: Problems Problem Status Onset Dizziness Acute Chest pain Acute Pre-syncope Acute
--- NOTE | 2018-07-28 14:04 | PDCARPN ---
Cardiology Progress Note Chief Complaint: Dizziness Assessment/Plan: Assessment: Carotid Artery Dz-- He was found to have significant right carotid obstruction. He is scheduled for Surgery Tuesday08/07/18. For surgery clearance, he needed to be cardiac evaluated, due to his known past Myocardial Infarction in 1974. "Echocardiogram" done 07/26/18 showed EF 71% w/ no WMA, No ssignificant valve abnormalities No intra-cardiac shunting. RVSP 40 mmhg--mildly increased. Aortic root Normal at 3.4 cm. No pericardial Effusion. "Nuclear Lexisan Stress test 07/28/18 shows EF Normal. NWMA, No Ischemia. Fixed uptake inferolateral area- due to diaphragmatic Attenuation. He feels well today. He should have no cardiac contraindications to proceed with upcoming Carotid surgery. Plan: Stable for discharge, and upcoming Carotid surgery. 07/28/18 13:53 Subjective: I feel good today. Ready to go home. Reviewed/Discussed With: hospitalist, multidisciplinary team Time Spent with Patient: greater than 25 minutes Time Spent with Patient: Greater than 25 minutes spent on this patients care, greater than 50% of time spent counseling, educating, and coordinating care regarding the above mentioned plan. Objective: Vital Signs (8 Hrs) Temp Pulse Resp BP Pulse Ox 07/28/18 11:23 36.6 C 63 18 162/85 H 91 L 07/28/18 08:00 36.6 C 58 L 16 155/69 H 96 Intake/Output (24 Hrs) 07/27/18 07/28/18 07/29/18 05:59 05:59 05:59 Intake Total 650 Balance 650 Intake: Oral (ml) 650 Other: Number of Voids Toilet 2 1 Result Diagrams: 07/27/18 04:30 07/27/18 04:30 - Physical Exam Constitutional: no apparent distress Cardiovascular: other (Regular Heart Rate) Respiratory: other (No labored breathing) Skin: warm Neurologic: AAOx3 ICD10 Worksheet Patient Problems: Problems Problem Status Onset Chest pain Acute Pre-syncope Acute Dizziness Acute
--- NOTE | 2018-07-28 15:25 | GDS ---
DISCHARGE DIAGNOSES: 1. Dizzy spells. 2. Chest discomfort. 3. Carotid stenosis. 4. Carotid body tumor. 5. Coronary artery disease. 6. Chronic obstructive pulmonary disease. CONSULTATIONS: 1. Elvis Stokes MD. 2. Jami Forman, nurse practitioner with surgical services. 3. Torie Galan, nurse practitioner with Cardiology Services. HISTORY OF PRESENT ILLNESS: Briefly, Azeb Moreno is a very sweet, 87-year-old gentleman, who has bee n having dizzy spells for approximately a year. He gets these bouts of spinning sensation that cause him to stumble. He was in Dr. Duke's office prior to being admitted and had these symptoms. Dr. Duke noted that he had a carotid bruit and he advised the patient and daughter to go to the emergen cy room if the symptoms reoccur. Subsequently, they did. In the emergency room he had a CT of his he ad, which showed nothing acute identified. The head and neck CTA showed atherosclerotic change of the carotid bulb and proximal internal carotid artery bilaterally with 50% to 60% stenosis. On the right there was an irregular ulcerative plaque. He has at approximately 50% stenosis at the origin of the left common carotid artery, approximately 50% stenosis at the origin of the vertebral arteries bilate rally. In addition, it noted that he had a mass at the left carotid bifurcation suggestive of a chen tid body tumor. He was subsequently seen and evaluated by Dr. Oh, who evaluated the results of is and the recommendation was to get further workup in regard to the carotid body tumor after he gets a carotid endarterectomy, which is scheduled. Of note, the patient has been having some chest discom fort. He was seen and evaluated by Cardiology. A myocardial perfusion scan was performed. This tristan wed a normal LV ejection fraction of 67%. He had no focal wall motion abnormalities. He had no isch emia. He has a fixed decreased uptake inferolateral wall on stress and rest imaging and upon review of chest x-ray it is probably related to diaphragmatic attenuation and less likely from an infarct. Today, he will be discharged home. The plan is for him to return to the hospital for a scheduled CEA with Dr. Oh on Tuesday morning. HOSPITAL COURSE PER PROBLEM: 1. Dizzy spells. I discontinued his Flexeril which has helped his symptoms. In addition, he is not ed to have orthostasis when going from lying to standing. Reviewed with the patient and his daughter to stop the Flexeril and to get up from lying to standing slowly. I also explained to them that a C EA of his right carotid may or may not help his dizzy spells. 2. Chest discomfort. His EKG shows no ischemia. His troponin is negative. His myocardial perfusio n scan shows no ischemia. 3. Carotid stenosis. Further follow up this next Tuesday with Dr. Oh. He will get a carotid enda rterectomy. 4. Carotid body tumor. This will get further evaluation after he gets his right carotid taken care of. 5. Coronary artery disease. Continue aspirin and statin therapy. 6. COPD, not having any type of acute exacerbation. DISCHARGE CONDITION: Stable. VITAL SIGNS: Blood pressure is 162/85, heart rate is 63, respiratory rate of 18, O2 saturation on ro om air 91%, temperature is 36.6 Celsius. MEDICATIONS AT DISCHARGE: Please see the EMR. DISCHARGE INSTRUCTIONS: 1. To call Dr. Oh office to verify the time he is to be here. 2. Spoke to surgery and they recommended to leave his aspirin as done. 3. If he develops any type of stroke symptoms, to return to the ER. Greater than 30 minutes discharging and coordinating the patient's care. /[id number]/MODL
--- NOTE | 2018-07-28 15:35 | ASDISCHSUM ---
Discharge Information Plan Status:Assisted Living Medically Cleared to Leave: Discharge Date:07/28/2018 02:00 PM D/C Disposition:Assisted Living ADT D/C Disposition:Home, Routine, Self-Care Projected Discharge Date:07/28/2018 11:00 AM Transportation at D/C:Family Discharge Delay Reason: Follow-Up Date:07/28/2018 11:00 AM Discharge Slot: Final Diagnosis: Placement Information Referral Type:*Group Home/SNF Referral ID:[id number] Provider Name:[facility] Address 1:[address] Address 2: City:[place] Selection Factors: State:[place] Patient Contact Information Contact Name:MAURA Relationship:Daughter Address:[address] Work Phone: [facility]:[place] Alternate Phone: State/Zip Code:[place] [address] Email: Financial Information Financial Class:Medicare Primary Plan Desc:MEDICARE INPATIENT Primary Plan Number:[id number] Secondary Plan Desc:[facility] Secondary Plan Number:[id number] Assessment Information LACE LACE Acuity / Level of Answers: Yes Care: Did the patient have an inpatient admission? Comorbidities - select Answers: Chronic pulmonary disease all that apply Coronary Artery Disease Dementia # of Emergency department Answers: 1-2 visits in the last 6 months Social determinants Answers: Mental health diagnosis (anxiety, depression, pers onality disorders, etc.) Score: 14 Date Signed: 07/27/2018 09:45 AM Electronically Signed By:Ina Pascual [facility] CM Progress Note CM Note CM Note Notes: CM reviewed pt's chart for d/c planning. Pt is a 87y/o male with hx of CAD who presented at the ED with dizzy spells that make him stumble. These episodes last 2-3 seconds and have been present for the last year. Pt presented to the ED with chest pain on 07/22/2018. Following tests he was d/siri with the plan to follow up with his hand i tube bender. He also c/o an unrelated lower sternal/epigastric, squeezing discomfort that has been happening for the last few weeks. He states this seems random and occurs a couple of times per day. Prior to presenting to the ED he saw his physician who noted a carotid bruit. Pt is being d/siri today and will return home with no CM needs. Per hospitalist, he will return Tuesday for surgery on his carotid. D/C Summary: Independent Date Signed: 07/27/2018 11:23 AM Electronically Signed By:Latasha Whitten LACE LACE Length of stay for Answers: Less than 1 day current admission Acuity / Level of Answers: Yes Care: Did the patient have an inpatient admission? Comorbidities - select Answers: Chronic pulmonary disease all that apply Coronary Artery Disease Dementia # of Emergency department Answers: 1-2 visits in the last 6 months Social determinants Answers: Mental health diagnosis (anxiety, depression, pers onality disorders, etc.) Score: 14 Date Signed: 07/27/2018 11:24 AM Electronically Signed By:Latasha Whitten [facility] CM Progress Note CM Note CM Note Notes: Pt is now being kept overnight. He is having an MRI today and will be receiving a stress test tomorrow. Pt lives at [facility], independently, with his . He will be returning there when d/c'ed. CM to follow if needs change. D/C Plan: Independent at [facility]. Date Signed: 07/27/2018 02:29 PM Electronically Signed By:Latasha Whitten [facility] Progress Note CM Note CM Note Notes: Received a call from Chauncey at , pt lives there with in their Memory Care apts. They help pt with medications and other minor cares. She requests dc paperwork, otherwise pt is discharging today without needs. DC Plan: [facility] Date Signed: 07/28/2018 11:43 AM Electronically Signed By:Mary Lujan RN Intervention Information Intervention Type:*Incorrect Registration Date of Service:07/26/2018 11:46 AM Patient Type:Inpatient Staff Member:WANDY Morales Courtney Hours: Discipline: Severity: Comment: Intervention Type:*GERALD-Signed Date of Service:07/27/2018 04:12 PM Patient Type:Observation Staff Member:Ina Pascual Hours: Discipline: Severity: Comment:
--- NOTE | 2018-07-28 16:09 | CPR ---
DATE OF PROCEDURE: 07/28/2018 REASON FOR TEST: 1. History of OH. 2. Carotid artery disease. 3. Evaluation prior to surgery. FINDINGS: Resting EKG shows a sinus bradycardia with a rate of 58. Resting blood pressure 110/70, o xygen saturation 96%. He is asymptomatic. STRESS PORTION LEXISCAN NUCLEAR STRESS TEST: Lexiscan was injected rapidly, followed by saline flush . Cardiolite was then injected, followed by saline flush. He remained asymptomatic throughout the s tress portion. EKG remained unchanged. Blood pressure 106/60, peak heart rate 65, oxygen saturation 94%. RECOVERY: He did spontaneously recover. He remained asymptomatic with no EKG changes. Resting bloo d pressure 112/64, resting heart rate 64, oxygen saturation 96%. At this time, he currently is stabl e for nuclear imaging. /[id number]/MODL
[2018-07-31] MEDS ORDERED: ceFAZolin 2 GM/DEXTROSE 100 ML IV ONE (08:00)
[2018-07-31] MEDS ORDERED: fentaNYL 100 MCG/2 ML INJ IVP PRN (08:24)
[2018-07-31] MEDS ORDERED: ONDANSETRON 4 MG/2 ML VIAL IVP PRN (08:24)
[2018-07-31] MEDS ORDERED: ALBUTEROL 3 ML DEYVIAL IH PRN (08:24)
[2018-07-31] MEDS ORDERED: NALOXONE HCL 0.4 MG/ML INJ IVP PRN (08:24)
== END 2018-07-28 14:00 | disposition home or self-care (01) | DRG 68 ==
LOC: EDUNIT# → INTOOBSV 19:35 → F3E 20:52 → OBSVTOIN 07-27 14:52
PROVIDERS: ADMIT Internal Medicine; ATTEND Internal Medicine
DX: I65.23 Occlusion and stenosis of bilateral carotid arteries (principal); I25.10 Atherosclerotic heart disease of native coronary artery without angina pectoris; J44.9 Chronic obstructive pulmonary disease, unspecified; Z87.891 Personal history of nicotine dependence; I25.2 Old myocardial infarction; G62.9 Polyneuropathy, unspecified
CPT/HCPCS: 84484-PO; A9500; G0378; J2785; Q9967

== ENCOUNTER 2018-07-28 15:04 | Inpatient (IN) | payer OTHER ==
[2018-07-31] MEDS ORDERED: LR 1,000 ML IV ONE (07:10)
--- NOTE | 2018-07-31 07:20 | PDHPUP ---
History & Physical Update H&P update statement: This history and physical update is based on an assessment of the patient which was completed after admission or registration (within 24 hours), but prior to the surgery/procedure. H&P update: H&P reviewed & patient examined, changes noted H&P changes: s/p hospital stay last week and now here for R CEA for critical carotid stenosis. Risks and options discussed including stroke and and he requests to proceed.
[2018-07-31] MEDS ORDERED: PROPOFOL/EMULSION 500 MG/50 ML BOTTLE IV ONE ×2 (08:11)
[2018-07-31] MEDS ORDERED: REMIFENTANIL HCL 1 MG VIAL ONE ×2 (08:12)
[2018-07-31] MEDS ORDERED: PHENYLEPHRINE HCL 100 MCG/ML SYR ONE (08:16)
[2018-07-31] MEDS ORDERED: HEPARIN 10,000 UNIT/10 ML MDV (1,000 UNIT/ML) ONE (08:18)
--- NOTE | 2018-07-31 08:24 | PDANEPAE ---
ANE History of Present Illness R CEA ANE Past Medical History - Cardiovascular History Hx Hypertension: Yes Hx Coronary Artery / Peripheral Vascular Disease: Yes - Pulmonary History Hx COPD: Yes Hx Oxygen in Use at Home: No Hx Sleep Apnea: No - Endocrine History Hx Diabetes: No - Neurological & Psychiatric Hx Neurological / Psychiatric History Comment: Dementia ANE Review of Systems Review of Systems: ANE Patient History - Allergies Allergies/Adverse Reactions: No Known Allergies Allergy (Verified 07/26/18 17:22) - Home Medications Home Medications: Acetaminophen [Tylenol 325mg (*)] 650 mg PO Q6 PRN 07/26/18 [Last Taken 07/30/18 ] Albuterol [Proventil Inhaler HFA (*)] 1 - 2 puffs IH Q4H PRN 07/26/18 [Last Taken 07/30/18] Aspirin EC [Aspirin EC 81 mg (*)] 81 mg PO DAILY 07/26/18 [Last Taken 07/30/18] Atorvastatin Calcium [Lipitor 40 mg (*)] 40 mg PO DAILY 07/26/18 [Last Taken 05/10] Magnesium Carb/Aluminum Hydrox [Gaviscon Es Tablet Chew] 2 each PO Q6H PRN 07/26 [Last Taken 07/30/18] Magnesium Hydroxide [Milk of Magnesia] 30 ml PO DAILY PRN 07/26/18 [Last Taken 07/30/18] Pregabalin [Lyrica 50mg (*)] 50 mg PO BID 07/26/18 [Last Taken 07/30/18] Psyllium Husk/Aspartame [Metamucil Fiber Singles Packet] 3.4 gm PO DAILY PRN 01/08 [Last Taken 07/30/18] Sertraline HCl [Zoloft 50mg (*)] 50 mg PO DAILY 07/26/18 [Last Taken 07/30/18] Loratadine 10 mg PO DAILY 07/31/18 [Last Taken 07/30/18] - Smoking Hx Smoking Status: Former smoker ANE Labs/Vital Signs - Vital Signs Blood Pressure: 162/85 Heart Rate: 63 Respiratory Rate: 18 O2 Sat (%): 91 Height: 182.88 cm Weight: 86.183 kg ANE Physical Exam - Airway Neck exam: FROM Mallampati Score: Class 2 Mouth exam: normal dental/mouth exam - Pulmonary Pulmonary: clear to auscultation - Cardiovascular Cardiovascular: regular rate and rhythym - ASA Status ASA Status: III ANE Anesthesia Plan Anesthesia Plan: general endotracheal anesthesia Lines/Monitors: arterial line Total IV Anesthesia: Yes
[2018-07-31] MEDS: ceFAZolin 2 GM/DEXTROSE 100 ML IV ONE ×2 (08:33→13:11)
[2018-07-31] MEDS ORDERED: DEXAMETHASONE 4 MG/ML VIAL ONE (09:58)
[2018-07-31] MEDS ORDERED: ONDANSETRON 4 MG/2 ML VIAL ONE (09:58)
[2018-07-31] MEDS ORDERED: ePHEDrine SULFATE 25 MG/5 ML SYR ONE (09:58)
[2018-07-31] MEDS: niCARdipine/NACL/200 ML BAG IV ONE ×2 (10:00→13:10)
[2018-07-31] MEDS: PROTAMINE SULFATE 50 MG/5 ML VIAL IVP ONE ×4 (10:00→15:18)
[2018-07-31] MEDS: THROMBIN (BOVINE) 20,000 UNIT SPRAY TP ONE ×4 (10:00→15:13)
[2018-07-31] MEDS ORDERED: ENALAPRILAT DIHYDRATE 1.25 MG/ML VIAL IVP PRN (10:33)
[2018-07-31] MEDS ORDERED: ONDANSETRON 4 MG/2 ML VIAL IVP PRN (10:33)
[2018-07-31] MEDS ORDERED: HYDROmorphONE/DILAUDID 1 MG/ML INJ IVP PRN (10:33)
--- NOTE | 2018-07-31 10:33 | POSTOPPROG ---
Post Op Note Date of Operation: 07/31/18 Surgeon: Kurtis Oh Inside Polisher: Adelaida Alves Anesthesiologist: Ceferino Galvan Anesthesia: GET(General Endotracheal) Pre-op Diagnosis: critical R carotid stenosis Post-op Diagnosis: same Procedure: R CEA c EEG monitoring and patch closure, cervical LN biopsy Findings: focal ulcerated plaque, ext carotid a. previously ligated, no EEG changes Inf/Abcess present in the surg proc area at time of surgery?: No EBL: 50-100 Complications: none Specimen(s): plaque and LN to pathology
[2018-07-31] MEDS ORDERED: NS 1,000 ML IV SCH (10:45)
--- NOTE | 2018-07-31 10:45 | POSTANESTH ---
Post Anesthetic Evaluation Cardiovascular Status: Normal, Stable Respiratory Status: Normal, Stable Level of Consciousness/Mental Status: Can Participate in Eval, Mildly Sleepy, Arousable Pain Control: Adequate, Prn Tx Ordered Nausea/Vomiting Control: Adequate, Prn Tx Ordered Complications Possibly Related to Anesthesia: None Noted
[2018-07-31] MEDS: BUPIVACAINE 0.5% 30 ML SDV ONE ×4 (13:08→15:07)
[2018-07-31] MEDS: OXYCODONE/APAP 5/325 TAB PO PRN ×2 (13:27→19:32)
[2018-08-01] MEDS: OXYCODONE/APAP 5/325 TAB PO PRN ×2 (01:01→07:20)
--- NOTE | 2018-08-01 09:49 | ASMTCMCOM ---
CM Note CM Note Notes: 87yr old male admitted for Carotid stenosis, CP, Pre-syncope, Dizziness. He has a Hx of CAD, COPD, Carotid body tumor. Patient had a R endarterectomy. Patient lives with his at [facility] and his daughter is his MPOA. Plans are for patient to return home with his . No other needs anticipated. Date Signed: 08/01/2018 09:48 AM Electronically Signed By:Ashtyn Handley LCSW
--- NOTE | 2018-08-01 11:13 | SOAPPROG ---
SOAP Progress Note Assessment/Plan: Assessment/Plan: POD#1 s/p R CEA. Doing well. BP stable. Neuro intact. Weaned from O2. D/c to home. No complaints. Alert, nad inc well dressed neuro intact no wob rrr 08/01/18 11:11 Objective: Vital Signs Temp Pulse Resp BP Pulse Ox 37.0 C 62 15 126/70 H 89 L 08/01/18 07:34 08/01/18 10:00 08/01/18 07:34 08/01/18 07:34 08/01/18 10:00 07/31/18 08/01/18 08/02/18 05:59 05:59 05:59 Intake Total 3548 Output Total 1620 Balance 1928 ICD10 Worksheet Patient Problems: Problems Problem Status Onset Chest pain Acute Dizziness Acute Pre-syncope Acute
[2018-08-01 11:22] VITALS: BP 113/86
--- NOTE | 2018-08-01 11:26 | ASDISCHSUM ---
Discharge Information Plan Status:Home with No Needs Medically Cleared to Leave:08/01/2018 Discharge Date:08/01/2018 CM D/C Disposition:Home, Routine, Self-Care ADT D/C Disposition:Home, Routine, Self-Care Projected Discharge Date:08/01/2018 01:00 PM Transportation at D/C:Family Discharge Delay Reason: Follow-Up Date:08/01/2018 01:00 PM Discharge Slot:2 - 12:01 pm - 18:00 pm Final Diagnosis:Carotid stenosis Placement Information Patient Contact Information Contact Name:MAURA Relationship:Daughter Address:[address] Work Phone: [facility]:[place] Alternate Phone: [facility]/Zip Code:[place] [address] Email: Financial Information Financial Class:Medicare Primary Plan Desc:MEDICARE INPATIENT Primary Plan Number:[id number] Secondary Plan Desc:[facility] Secondary Plan Number:[id number] Assessment Information LACE LACE Length of stay for Answers: Less than 1 day current admission Acuity / Level of Answers: Yes Care: Did the patient have an inpatient admission? Comorbidities - select Answers: Chronic pulmonary disease all that apply Coronary Artery Disease Dementia Other Notes: HTN # of Emergency department Answers: 1-2 visits in the last 6 months Social determinants Answers: Mental health diagnosis (anxiety, depression, pers onality disorders, etc.) Score: 15 Date Signed: 08/01/2018 11:25 AM Electronically Signed By:Ashtyn Handley LCSW [facility] Progress Note CM Sanju CM Note Notes: 87yr old male admitted for Carotid stenosis, CP, Pre-syncope, Dizziness. He has a Hx of CAD, COPD, Carotid body tumor. Patient had a R endarterectomy. Patient lives with his at [facility] and his daughter is his MPOA. Plans are for patient to return home with his . No other needs anticipated. Date Signed: 08/01/2018 09:48 AM Electronically Signed By:Ashtyn Handley LCSW Case Management Discharge Plan Note Case Management Discharge Discharge Order Complete? Answers: Yes Patient to Obtain Answers: via Family Medications Transportation Arranged Answers: Family/Friends Transport will Pick (Date 08/01/2018 01:00 PM & Time) Family Notified Answers: Yes Notes: Family to transport Discharge Comments Notes: Patient has been discharged home with . No needs. Date Signed: 08/01/2018 11:24 AM Electronically Signed By:Ashtyn Handley LCSW Intervention Information
[2018-08-02] MEDS ORDERED: ENOXAPARIN 40 MG/0.4 ML SYR SC SCH (09:00)
--- NOTE | 2018-08-04 04:28 | GOP ---
DATE OF OPERATION: 07/31/2018 SURGEON: Kurtis Oh MD DIGITAL ART DIRECTOR: Adelaida Alves, JAYESH. ANESTHESIOLOGIST: Ceferino Galvan DO. PREOPERATIVE DIAGNOSIS: Critical right carotid stenosis with probable dissection. 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 PROCEDURE PERFORMED: Right carotid endarterectomy with EEG monitoring, patch closure and cervical ly mph node biopsy. FINDINGS: The patient was found to have enlarged deep cervical nodes near the carotid bifurcation. 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 It is also interesting that the external carotid artery had previously been ligated. There were no EEG changes and the patient awoke moving all extremities. DESCRIPTION OF PROCEDURE: The patient was taken to the operating room where he received satisfactory general endotracheal anesthesia by Dr. Galvan, placed in the supine position, and prepped and draped in the usual sterile fashion. The patient had been systemically heparinized prior to induction of an esthesia. An incision was made along the anterior border of the sternocleidomastoid muscle and hiram ed down through a previous old scar and down through the platysma and subcutaneous tissue, and throug h the superficial fascia. The artery was quite superficial. Some veins crossing the artery were royer jasson ligated and divided, but the common facial vein appeared to have already been sacrificed. The ca rotid arterial tree was dissected free. It became apparent that the external carotid artery had been previously ligated and transected. The internal carotid artery was dissected free and encircled wit h a vessel loop as was the common carotid artery. After adequate exposure, additional heparin was gi alecia and after adequate circulation time, the vessels were occluded. Incision was made in the common carotid artery extending up through the ulcerated plaque and dissection of the origin of the internal carotid artery. There was excellent backflow. A shunt was not required. Expeditious endarterectom y was then done, removing the ulcerated plaque and dissected intima away from the arterial wall. Goo d feathered end was achieved in the internal carotid artery. The specimen was removed. The wound wa s copiously irrigated. All vessels were flushed. Arteriotomy was then closed using a Dacron patch a nd suturing in place with a Hemashield 7 suture. All vessels were again flushed prior to completion of the suture line, which was then completed. Flow was slowly reestablished. The suture line appear ed to be hemostatic. Heparin was reversed with protamine. The wound was irrigated. Hemostasis was thoroughly obtained. The wound was sprayed with some topical thrombin, and the posterior skin and sharif bcutaneous tissue were infiltrated with 0.5% Marcaine. The superficial fascia was closed with a runn ing 3-0 Vicryl suture. Then the platysma was closed in a similar manner and the skin with a 3-0 [place] cryl subcuticular stitch. The wounds were dressed with Steri-Strips. He tolerated the procedure wel l and was taken to the recovery room in good condition. There were no complications. /[id number]/MODL
== END 2018-08-01 12:23 | disposition home or self-care (01) | DRG 39 ==
LOC: F3E 07-31 06:48 → F2N 07-31 11:51
PROVIDERS: ADMIT Surgery; ATTEND Surgery
DX: I65.21 Occlusion and stenosis of right carotid artery (principal); R59.0 Localized enlarged lymph nodes; I10 Essential (primary) hypertension; J44.9 Chronic obstructive pulmonary disease, unspecified; F03.90 Unspecified dementia, unspecified severity, without behavioral disturbance, psychotic disturbance, mood disturbance, and anxiety; I25.10 Atherosclerotic heart disease of native coronary artery without angina pectoris
CPT/HCPCS: C1768; J0690; J1100; J1644; J2370; J2405; J2704; J2720

== ENCOUNTER 2018-08-06 17:00 | Inpatient (IN) | payer OTHER ==
--- NOTE | 2018-08-06 17:17 | EDPHY ---
H & P Stated Complaint: BIBA from [facility] for malaise and low grade fever of 99 Time Seen by Provider: 08/06/18 17:04 HPI/ROS: Chief complaint: Dizziness, weakness, hypoxia History of present illness: This is an 87-year-old male brought in by ambulance from [facility] where he is recovering after carotid endarterectomy performed 6 days ago. Patient was seen in this emergency department prior to that for dizziness. He was admitted. Ultimately there was concern for carotid stenosis and he had an outpatient carotid end arterectomy. He has been recovering well. However today usp staff note patient seemed weaker than usual. On my evaluation he reports feeling mildly dizzy which is how he initially felt at the onset of all of his symptoms before the surgery. He also reports generalized malaise. However he denies other associated signs or symptoms including no pain at the surgical site, no headache, no weakness or paralysis of the extremities, no difficulty speaking, no cough, no difficulty breathing, no chest pain, no pain or swelling in the legs. Review of systems: A 10 point review of systems was obtained and other than described above was negative. - Personal History Current Tetanus Diphtheria and Acellular Pertussis (TDAP): Yes - Medical/Surgical History Hx Asthma: No Hx Chronic Respiratory Disease: Yes Hx Diabetes: No Hx Cardiac Disease: Yes Hx Renal Disease: No Hx Cirrhosis: No Hx Alcoholism: No Hx HIV/AIDS: No Hx Splenectomy or Spleen Trauma: No Other PMH: COPD, depression, mitral valve insufficiancy, peripheral neuropathy, PNA, R corotid "blockage" - Social History Smoking Status: Former smoker - Physical Exam Exam: General Appearance: Alert, nontoxic. Patient is 77% on room air at presentation , he is placed on nasal cannula 2 liters/minute and his oxygenation remains in the mid 90s. Eyes: Pupils equal and round no pallor or injection. ENT, Mouth: Mucous membranes moist. Respiratory: Rales are noted in the left lower lung field otherwise clear to auscultation bilaterally. Cardiovascular: Regular rate and rhythm. Gastrointestinal: Abdomen is soft and non tender, no masses, bowel sounds normal. Neurological: Alert. Cranial nerves 2-12 grossly intact. Strength and sensation intact and symmetrical. Skin: Surgical incisions site on the right side of the neck appears to be healing well. Associated bruising. Musculoskeletal: Neck is supple non tender. Extremities are symmetrical, full range of motion. Psychiatric: Appropriate affect. Constitutional: Initial Vital Signs Temperature (C) 36.5 C 08/06/18 17:05 Heart Rate 65 08/06/18 17:05 Respiratory Rate 16 08/06/18 17:05 Blood Pressure 129/68 H 08/06/18 17:05 O2 Sat (%) 77 L 08/06/18 17:05 O2 Delivery Mode Nasal Cannula O2 (L/minute) 2 Allergies/Adverse Reactions: No Known Allergies Allergy (Verified 07/26/18 17:22) Home Medications: Medication Instructions Recorded Acetaminophen [Tylenol 325mg (*)] 650 mg PO Q6 PRN 07/26/18 Albuterol [Proventil Inhaler HFA 1 - 2 puffs IH Q4H PRN 07/26/18 (*)] Aspirin EC [Aspirin EC 81 mg (*)] 81 mg PO DAILY 07/26/18 Atorvastatin Calcium [Lipitor 40 40 mg PO DAILY 07/26/18 mg (*)] Magnesium Carb/Aluminum Hydrox 2 each PO Q6H PRN 07/26/18 [Gaviscon Es Tablet Chew] Magnesium Hydroxide [Milk of 30 ml PO DAILY PRN 07/26/18 Magnesia] Pregabalin [Lyrica 50mg (*)] 50 mg PO BID 07/26/18 Psyllium Husk/Aspartame [Metamucil 3.4 gm PO DAILY PRN 07/26/18 Fiber Singles Packet] Sertraline HCl [Zoloft 50mg (*)] 50 mg PO DAILY 07/26/18 Loratadine 10 mg PO DAILY 07/31/18 oxyCODONE/APAP 5/325 [Percocet 1 - 2 tab PO Q4HRS PRN #20 tab 08/01/18 5/325 (*)] Medical Decision Making - Diagnostics Imaging Results: Imaging Impressions Chest X-Ray 08/06/18 17:12 Impression: 1. Mild pulmonary venous hypertension. 2. No pneumothorax. Chest/Thorax CTA 08/06/18 19:28 Impression: 1. No definite pulmonary thromboemboli. 2. Coronary atherosclerosis and atherosclerotic aorta without aneurysm or dissection. 3. Left lower lobe and lingular opacities which may represent acute pneumonia. 4. Asymmetric right lung apex 22 x 10 mm irregular nodular density, which may represent asymmetric right apical pleuroparenchymal scarring or neoplasm. Recommend Follow-up nuclear medicine PET scan when the patient's medical condition permits or CT chest in three months. 5. No pleural effusion or pneumothorax. Findings and recommendations discussed with emergency department physician animal assistant, Rogers Modi PA-C at 2007 hours on August 06, 2018. Final report concurs with initial preliminary interpretation. A test result has been communicated to a licensed care provider and documented in the [facility] Critical Result system on 08/06/2018 20:08, Message ID [id number]. Imaging: Discussed imaging studies w/ rehab technician Radiologist, I viewed and interpreted images myself ED Course/Re-evaluation: Patient has been discussed with my primary supervising physician Dr. Maria E Garcia. Patient comes in with dizziness, weakness and hypoxia. Evaluation ultimately is concerning for a left lower lobe pneumonia. He has an otherwise unremarkable workup except he remains hypoxic. I have consulted with the on- call hospitalist, Dr. Damian Langston. He will accept this patient for admission. He asked that I withhold antibiotics, nebulizer, steroids etc... until he has evaluated the patient as patient is stable. Patient is admitted. Patient voiced understanding and agreement with plan. Differential Diagnosis: Included but not limited to respiratory infections including pneumonia - Data Points Laboratory Results: Laboratory Results 08/06/18 17:18 08/06/18 17:18 08/06/18 08/06/18 08/06/18 18:48 17:35 17:18 WBC RBC Hgb Hct MCV MCH MCHC RDW Plt Count MPV Neut % (Auto) Lymph % (Auto) [place] % (Auto) Eos % (Auto) Baso % (Auto) Nucleat RBC Rel Count Absolute Neuts (auto) Absolute Lymphs (auto) Absolute Monos (auto) Absolute Eos (auto) Absolute Basos (auto) Absolute Nucleated RBC Immature Gran % Immature Gran # PT INR APTT VBG Lactic Acid Sodium Potassium Chloride Carbon Dioxide Anion Gap BUN Creatinine Estimated GFR Glucose Calcium POC Troponin I 0.00 ng/mL ng/mL (0.00-0.08) NT-Pro-B Natriuret Pep 131 pg/mL pg/mL (0-450) Procalcitonin 0.06 ng/mL ng/mL (0.02-0.10) TSH 5.370 uIU/mL H uIU/mL (0.465-4.680) Urine Color YELLOW Urine Appearance CLEAR Urine pH 6.0 (5.0-7.5) Ur Specific [place] 1.017 (1.002-1.030) Urine Protein NEGATIVE (NEGATIVE) Urine Ketones NEGATIVE (NEGATIVE) Urine Blood 2+ H (NEGATIVE) Urine Nitrate NEGATIVE (NEGATIVE) Urine Bilirubin NEGATIVE (NEGATIVE) Urine Urobilinogen NEGATIVE EU EU (0.2-1.0) Ur Leukocyte Esterase NEGATIVE (NEGATIVE) Urine RBC 50-182 /hpf H /hpf (0-3) Urine WBC 1-3 /hpf /hpf (0-3) Ur Epithelial Cells TRACE /lpf /lpf (NONE-1+) Urine Glucose NEGATIVE (NEGATIVE) 08/06/18 08/06/18 08/06/18 17:18 17:18 17:18 WBC 6.09 10^3/uL 10^3/uL (3.80-9.50) RBC 3.93 10^6/uL L 10^6/uL (4.40-6.38) Hgb 11.7 g/dL L g/dL (13.7-17.5) Hct 35.5 % L % (40.0-51.0) MCV 90.3 fL fL (81.5-99.8) MCH 29.8 pg pg (27.9-34.1) MCHC 33.0 g/dL g/dL (32.4-36.7) RDW 15.1 % % (11.5-15.2) Plt Count 144 10^3/uL L 10^3/uL (150-400) MPV 9.7 fL fL (8.7-11.7) Neut % (Auto) 59.7 % % (39.3-74.2) Lymph % (Auto) 25.1 % % (15.0-45.0) [place] % (Auto) 8.4 % % (4.5-13.0) Eos % (Auto) 4.4 % % (0.6-7.6) Baso % (Auto) 0.8 % % (0.3-1.7) Nucleat RBC Rel Count 0.0 % % (0.0-0.2) Absolute Neuts (auto) 3.63 10^3/uL 10^3/uL (1.70-6.50) Absolute Lymphs (auto) 1.53 10^3/uL 10^3/uL (1.00-3.00) Absolute Monos (auto) 0.51 10^3/uL 10^3/uL (0.30-0.80) Absolute Eos (auto) 0.27 10^3/uL 10^3/uL (0.03-0.40) Absolute Basos (auto) 0.05 10^3/uL 10^3/uL (0.02-0.10) Absolute Nucleated RBC 0.00 10^3/uL 10^3/uL (0-0.01) Immature Gran % 1.6 % H % (0.0-1.1) Immature Gran # 0.10 10^3/uL 10^3/uL (0.00-0.10) PT 13.5 SEC SEC (12.0-15.0) INR 1.01 (0.83-1.16) APTT 28.1 SEC SEC (23.0-38.0) VBG Lactic Acid Sodium 138 mEq/L mEq/L (135-145) Potassium 4.6 mEq/L mEq/L (3.3-5.0) Chloride 103 mEq/L mEq/L (97-110) Carbon Dioxide 26 mEq/l mEq/l (22-31) Anion Gap 9 mEq/L mEq/L (6-14) BUN 32 mg/dL H mg/dL (7-23) Creatinine 1.3 mg/dL mg/dL (0.7-1.3) Estimated GFR 52 Glucose 83 mg/dL mg/dL (70-100) Calcium 9.1 mg/dL mg/dL (8.5-10.4) POC Troponin I NT-Pro-B Natriuret Pep Procalcitonin TSH Urine Color Urine Appearance Urine pH Ur Specific [place] Urine Protein Urine Ketones Urine Blood Urine Nitrate Urine Bilirubin Urine Urobilinogen Ur Leukocyte Esterase Urine RBC Urine WBC Ur Epithelial Cells Urine Glucose 08/06/18 17:18 WBC RBC Hgb Hct MCV MCH MCHC RDW Plt Count MPV Neut % (Auto) Lymph % (Auto) [place] % (Auto) Eos % (Auto) Baso % (Auto) Nucleat RBC Rel Count Absolute Neuts (auto) Absolute Lymphs (auto) Absolute Monos (auto) Absolute Eos (auto) Absolute Basos (auto) Absolute Nucleated RBC Immature Gran % Immature Gran # PT INR APTT VBG Lactic Acid 1.2 mmol/L mmol/L (0.7-2.1) Sodium Potassium Chloride Carbon Dioxide Anion Gap BUN Creatinine Estimated GFR Glucose Calcium POC Troponin I NT-Pro-B Natriuret Pep Procalcitonin TSH Urine Color Urine Appearance Urine pH Ur Specific [place] Urine Protein Urine Ketones Urine Blood Urine Nitrate Urine Bilirubin Urine Urobilinogen Ur Leukocyte Esterase Urine RBC Urine WBC Ur Epithelial Cells Urine Glucose Microbiology Results: MICROBIOLOGY 08/06/18 17:59 Nasal, Sinus - [place] Viral Transport Respiratory Panel ( PCR) - Final No Organism Detected Medications Given: Heparin Sodium (Porcine) (Heparin Sc Injection) 5,000 unit SC Q8 ENID Stop: 02/02/19 21:59 Last Admin: 08/06/18 22:21 Dose: 5,000 unit Discontinued Medications Sodium Chloride (Ns) 1,000 mls @ 100 mls/hr IV CONT ENID Stop: 02/02/19 20:29 Last Admin: 08/06/18 22:20 Dose: 1,000 mls Point of Care Test Results: Chemistry 08/06/18 17:35 POC Troponin I 0.00 ng/mL ng/mL (0.00-0.08) Departure - Departure Disposition: [facility] Inpatient Acute Clinical Impression: Acute respiratory failure Qualifiers: Respiratory failure complication: unspecified whether with hypoxia or hypercapnia Qualified Code(s): J96.00 - Acute respiratory failure, unspecified whether with hypoxia or hypercapnia Pneumonia Qualifiers: Pneumonia type: due to unspecified organism Laterality: left Lung location: unspecified part of lung Qualified Code(s): J18.9 - Pneumonia, unspecified organism Condition: Fair
[2018-08-06 17:37] LABS: PLATELET COUNT 144 10^3/uL (150-400)
[2018-08-06] MEDS ORDERED: IOPAMIDOL (ISOVUE 370) 100 ML BTL IV ONE (19:35)
[2018-08-06 19:54] LABS: INR 1.01 (0.83-1.16); PROTIME(PATIENT) 13.5 SEC (12.0-15.0)
--- NOTE | 2018-08-06 20:26 | CPEKG ---
Test Reason : OPEN Blood Pressure : / mmHG Vent. Rate : 059 BPM Atrial Rate : 059 BPM P-R Int : 167 ms QRS Dur : 093 ms QT Int : 461 ms P-R-T Axes : 072 005 043 degrees QTc Int : 457 ms Sinus rhythm Confirmed by Maria E Garcia ([id number]) on 08/06/2018 8:26:06 PM Referred By: Confirmed By:Maria E Garcia
[2018-08-06] MEDS ORDERED: ONDANSETRON DISINTEGRATING 4 MG TAB PO PRN (20:30)
[2018-08-06] MEDS ORDERED: NS 1,000 ML IV SCH (20:30)
[2018-08-06] MEDS ORDERED: ACETAMINOPHEN 325 MG TAB PO PRN (20:30)
[2018-08-06] MEDS ORDERED: ONDANSETRON 4 MG/2 ML VIAL IVP PRN (20:30)
[2018-08-06] MEDS: HEPARIN 5,000 UNIT/0.5 ML INJ SC SCH (22:21)
[2018-08-06] MEDS ORDERED: MAGNESIUM CARB PO PRN (22:30)
[2018-08-06] MEDS ORDERED: OXYCODONE/APAP 5/325 TAB PO PRN (22:30)
[2018-08-06] MEDS ORDERED: ALBUTEROL 60 PUFFS/8 GM MDI IH PRN (22:30)
[2018-08-06] MEDS ORDERED: ALUMINUM HYDROX PO PRN (22:30)
[2018-08-06] MEDS ORDERED: MAGNESIUM HYDROXIDE 30 ML UDCUP PO PRN (22:30)
--- NOTE | 2018-08-06 22:30 | PDGENHP ---
History and Physical - Chief Complaint Acute weakness - History of Present Illness Primary care provider: Unknown HPI: 87-year-old male presents with acute weakness characterized by the patient is generalized, with onset of symptoms on the day of presentation and duration persistent thereafter. His oxygen saturation was reportedly checked at home, and it was reportedly in the 80s. It is unclear who checked this oxygen level. Upon arrival at [facility], his SpO2 was 77% on room air. When questioned whether he chronically wears supplemental oxygen, the patient is unable to provide a straight answer. He reports that he does utilize supplemental oxygen at baseline but then reports that he was not using it prior to arrival. The history provided by the patient regarding supplemental oxygen use as well as any associated symptoms at rehab is entirely unclear. When questioned specifically about lower extremity edema, the patient does endorse that he has bilateral lower extremity edema, but he is unable to qualify whether it has increased recently. He denies any overt cough, fever, chills, shortness of breath. History Information - Allergies/Home Medication List Allergies/Adverse Reactions: No Known Allergies Allergy (Verified 07/26/18 17:22) Home Medications: Acetaminophen [Tylenol 325mg (*)] 650 mg PO Q6 PRN 07/26/18 [Last Taken 07/30/18 ] Albuterol [Proventil Inhaler HFA (*)] 1 - 2 puffs IH Q4H PRN 07/26/18 [Last Taken 07/30/18] Aspirin EC [Aspirin EC 81 mg (*)] 81 mg PO DAILY 07/26/18 [Last Taken 08/06/18] Atorvastatin Calcium [Lipitor 40 mg (*)] 40 mg PO DAILY 07/26/18 [Last Taken ] Magnesium Carb/Aluminum Hydrox [Gaviscon Es Tablet Chew] 2 each PO Q6H PRN 07/26 [Last Taken 07/30/18] Magnesium Hydroxide [Milk of Magnesia] 30 ml PO DAILY PRN 07/26/18 [Last Taken 08/03/18] Pregabalin [Lyrica 50mg (*)] 50 mg PO BID 07/26/18 [Last Taken 08/06/18 08:00] Psyllium Husk/Aspartame [Metamucil Fiber Singles Packet] 3.4 gm PO DAILY PRN 01/08 [Last Taken 07/30/18] Sertraline HCl [Zoloft 50mg (*)] 50 mg PO DAILY 07/26/18 [Last Taken 08/06/18] Loratadine 10 mg PO DAILY 07/31/18 [Last Taken 08/06/18] I have personally reviewed and updated: family history, medical history, social history, surgical history - Past Medical History coronary artery disease (Reports prior myocardial infarction in the 1970s), COPD (Unclear whether he has chronic hypoxic respiratory failure) Additional medical history: Carotid stenosis with recent carotid endarterectomy. Carotid body mass. Orthostasis. Chronic kidney disease stage 3 with baseline serum creatinine 1.3-1.5. 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 Right CEA 2017 - Family History Additional family history: Mother and daughter have epilepsy - Social History Smoking Status: Former smoker Alcohol Use: Other (It has been approximately 1 month since he had an alcoholic beverage) Drug Use: None Additional social history: Patient reports that he and his have an apartment at [facility] but he is unable to provide any details as to whether he was receiving services at home prior to arrival Review of Systems Review of Systems: ROS: 10pt was reviewed & negative except for what was stated in HPI & below Constitutional: Reports: weakness Cardiac: Reports: edema Physical Exam Physical Exam: Temp Pulse Resp BP Pulse Ox 36.4 C 58 L 18 176/83 H 96 08/06/18 21:32 08/06/18 21:32 08/06/18 21:32 08/06/18 21:32 08/06/18 21:32 O2 (L/minute) 2 Constitutional: no apparent distress, appears nourished, not in pain, No uncomfortable Eyes: PERRL, anicteric sclera, EOMI Ears, Nose, Mouth, Throat: moist mucous membranes, ears appear normal, no oral mucosal ulcers, hard of hearing Cardiovascular: edema (Trace to 1+ bilateral lower extremities), No systolic murmur, No irregularly irregular, No tachycardia Respiratory: inspiratory crackles (Bilateral bases), No reduced air movement, No expiratory wheeze, No bronchial breath sounds, No respiratory distress Gastrointestinal: normoactive bowel sounds, soft, non-tender abdomen, No distension Genitourinary: no bladder fullness, no bladder tenderness Skin: other (Ecchymoses confluent Pasquale over the right lower neck without any erythema overlying the surgical site) Neurologic: sensation intact bilaterally, other (Alert awake oriented x2 to person and place not time), No AAOx3, No weakness (Motor strength 5/5 bilateral upper and lower extremities), No facial droop Psychiatric: interacting appropriately, not anxious, encephalopathic, poor memory, other (Naming 3/3, concentration 7/7, patient unable to provide a clear history), No agitated Lab Data & Imaging Review 08/06/18 17:18 08/06/18 17:18 WBC 6.09 10^3/uL (3.80-9.50) 08/06/18 17:18 RBC 3.93 10^6/uL (4.40-6.38) L 08/06/18 17:18 Hgb 11.7 g/dL (13.7-17.5) L 08/06/18 17:18 Hct 35.5 % (40.0-51.0) L 08/06/18 17:18 MCV 90.3 fL (81.5-99.8) 08/06/18 17:18 MCH 29.8 pg (27.9-34.1) 08/06/18 17:18 MCHC 33.0 g/dL (32.4-36.7) 08/06/18 17:18 RDW 15.1 % (11.5-15.2) 08/06/18 17:18 Plt Count 144 10^3/uL (150-400) L 08/06/18 17:18 MPV 9.7 fL (8.7-11.7) 08/06/18 17:18 Neut % (Auto) 59.7 % (39.3-74.2) 08/06/18 17:18 Lymph % (Auto) 25.1 % (15.0-45.0) 08/06/18 17:18 [place] % (Auto) 8.4 % (4.5-13.0) 08/06/18 17:18 Eos % (Auto) 4.4 % (0.6-7.6) 08/06/18 17:18 Baso % (Auto) 0.8 % (0.3-1.7) 08/06/18 17:18 Nucleat RBC Rel Count 0.0 % (0.0-0.2) 08/06/18 17:18 Absolute Neuts (auto) 3.63 10^3/uL (1.70-6.50) 08/06/18 17:18 Absolute Lymphs (auto) 1.53 10^3/uL (1.00-3.00) 08/06/18 17:18 Absolute Monos (auto) 0.51 10^3/uL (0.30-0.80) 08/06/18 17:18 Absolute Eos (auto) 0.27 10^3/uL (0.03-0.40) 08/06/18 17:18 Absolute Basos (auto) 0.05 10^3/uL (0.02-0.10) 08/06/18 17:18 Absolute Nucleated RBC 0.00 10^3/uL (0-0.01) 08/06/18 17:18 Immature Gran % 1.6 % (0.0-1.1) H 08/06/18 17:18 Immature Gran # 0.10 10^3/uL (0.00-0.10) 08/06/18 17:18 PT 13.5 SEC (12.0-15.0) 08/06/18 17:18 INR 1.01 (0.83-1.16) 08/06/18 17:18 APTT 28.1 SEC (23.0-38.0) 08/06/18 17:18 VBG Lactic Acid 1.2 mmol/L (0.7-2.1) 08/06/18 17:18 Sodium 138 mEq/L (135-145) 08/06/18 17:18 Potassium 4.6 mEq/L (3.3-5.0) 08/06/18 17:18 Chloride 103 mEq/L (97-110) 08/06/18 17:18 Carbon Dioxide 26 mEq/l (22-31) 08/06/18 17:18 Anion Gap 9 mEq/L (6-14) 08/06/18 17:18 BUN 32 mg/dL (7-23) H 08/06/18 17:18 Creatinine 1.3 mg/dL (0.7-1.3) 08/06/18 17:18 Estimated GFR 52 08/06/18 17:18 Glucose 83 mg/dL (70-100) 08/06/18 17:18 Calcium 9.1 mg/dL (8.5-10.4) 08/06/18 17:18 POC Troponin I 0.00 ng/mL (0.00-0.08) 08/06/18 17:35 NT-Pro-B Natriuret Pep 131 pg/mL (0-450) 08/06/18 17:18 Procalcitonin 0.06 ng/mL (0.02-0.10) 08/06/18 17:18 TSH 5.370 uIU/mL (0.465-4.680) H 08/06/18 17:18 Urine Color YELLOW 08/06/18 18:48 Urine Appearance CLEAR 08/06/18 18:48 Urine pH 6.0 (5.0-7.5) 08/06/18 18:48 Ur Specific [place] 1.017 (1.002-1.030) 08/06/18 18:48 Urine Protein NEGATIVE (NEGATIVE) 08/06/18 18:48 Urine Ketones NEGATIVE (NEGATIVE) 08/06/18 18:48 Urine Blood 2+ (NEGATIVE) H 08/06/18 18:48 Urine Nitrate NEGATIVE (NEGATIVE) 08/06/18 18:48 Urine Bilirubin NEGATIVE (NEGATIVE) 08/06/18 18:48 Urine Urobilinogen NEGATIVE EU (0.2-1.0) 08/06/18 18:48 Ur Leukocyte Esterase NEGATIVE (NEGATIVE) 08/06/18 18:48 Urine RBC 50-182 /hpf (0-3) H 08/06/18 18:48 Urine WBC 1-3 /hpf (0-3) 08/06/18 18:48 Ur Epithelial Cells TRACE /lpf (NONE-1+) 08/06/18 18:48 Urine Glucose NEGATIVE (NEGATIVE) 08/06/18 18:48 Visualized and Interpreted imaging results: Yes Interpretation: Chest CT demonstrating left lower lobe and lingular airspace disease as well as right apical scarring/infiltrate Visualized and Interpreted EKG results: Yes EKG Interpretation: Positive for: normal sinsus rhythm Assessment & Plan Assessment: 87-year-old male presents with acute generalized weakness secondary to hypoxia Plan: 1. Hypoxia. Acute, new problem this provider, further workup indicated. Unclear whether this is an acute hypoxia or whether this is hypoxia secondary to chronic hypoxic respiratory failure and known COPD -review of his outside records from his most recent hospitalizations seem to indicate that the patient was hypoxic on each of his subsequent visits but that his SpO2 was greater than 90 on his final vital sign prior to discharge, and is conceivable that he may been discharged home without supplemental oxygen -that being said, the patient indicates that he has been prescribed home supplemental oxygen, but he is unable to clearly provide additional details as to whether he is wearing it, or how frequently. -I suspect that his symptoms of generalized weakness are secondary to hypoxia and will be important to continue wearing supplemental oxygen moving forward -his SpO2 responded from 77% to the mid 90s with addition of 2 L nasal cannula -chest imaging demonstrates no evidence of pulmonary embolism, possible pneumonia but this seems less likely given normal procalcitonin level, normal white blood cell count, afebrile with out pulmonary symptoms -I suspect that these chest imaging infiltrates are potentially a combination of atelectasis as well as mild volume overload with his presenting weights approximately 3 kg higher than his previous discharge weights -provided incentive spirometer, initiated on IV Lasix in a.m., gauge effect of both interventions 2. Suspected mild acute diastolic congestive heart failure exacerbation. Most recent echocardiogram demonstrating ejection fraction 71%, diastolic dysfunction , currently net positive 3 kg since most recent hospitalization with lower extremity edema -patient is not on diuretic at baseline, give IV Lasix in a.m. And gauge effect -monitor strict I&Os -consider discharging him on oral Lasix tomorrow if he experiences any symptomatic improvement in his weakness 3. Suspected chronic hypoxic respiratory failure. Recommend obtaining outside records from his primary care provider, who is to be determined -continue supplemental oxygen -recommend outpatient pulmonary follow-up and outpatient pulmonary function test -continue albuterol inhaler p.r.n. for underlying COPD 4. Chronic kidney disease stage 3. Creatinine is currently at his baseline, will diurese as above, repeat serum creatinine level in a.m. 5. Coronary artery disease. Continue home medications 6. Carotid stenosis. Status post CEA, postop day 5 -discussed with Rogers Modi, emergency department provider, he has informed me that he has consulted with Dr. Ju Delarosa who will notify Dr. Oh so that he can evaluate patient in a.m. 7. Dementia with chronic encephalopathy. Obtaining a reliable history from the patient is exceptionally challenging, and I would recommend obtaining collateral information tomorrow from his or daughter and advising a mini- mental status exam to be performed by his PCP once he is reintroduced into his home environment. Diet. Cardiac Prophylaxis. High risk patient, hep subcu Code. Full, daughter is MD KIDD Disposition. Anticipated discharge 08/07 pending therapy evaluations and determinations whether the patient is safe to go home with home care services verses [facility]. Review of case management notes from his most recent discharge seem to indicate that he went back to his independent apartment with his and that he has not been in the Health Center.
[2018-08-06] MEDS: PREGABALIN 50 MG CAP PO SCH (23:15)
[2018-08-07 05:16] LABS: PLATELET COUNT 137 10^3/uL (150-400)
[2018-08-07] MEDS: HEPARIN 5,000 UNIT/0.5 ML INJ SC SCH ×3 (06:43→21:23)
--- NOTE | 2018-08-07 08:32 | ASMTLACE ---
CARLOS Comorbidities - select Answers: Chronic pulmonary disease all that apply Coronary Artery Disease Dementia Mild liver or renal disease # of Emergency department Answers: 3-4 visits in the last 6 months Social determinants Answers: Mental health diagnosis (anxiety, depression, pers onality disorders, etc.) Score: 15 Date Signed: 08/07/2018 08:31 AM Electronically Signed By:Ina Pascual
[2018-08-07] MEDS: ATORVASTATIN CALCIUM 40 MG TAB PO SCH (09:42)
[2018-08-07] MEDS: CETIRIZINE 10 MG TAB PO SCH (09:42)
[2018-08-07] MEDS: SERTRALINE HCL 50 MG TAB PO SCH (09:42)
[2018-08-07] MEDS: ASPIRIN EC 81 MG TAB PO SCH (09:43)
[2018-08-07] MEDS: FUROSEMIDE 20 MG/2 ML VIAL IVP SCH (09:43)
[2018-08-07] MEDS: PREGABALIN 50 MG CAP PO SCH ×2 (09:47→21:23)
--- NOTE | 2018-08-07 14:14 | ASMTCMCOM ---
CM Note CM Note Notes: CM reviewed pt's chart and met with pt for d/c planning. Pt is an 87y/o male recently released from the hospital, returned due to acute hypoxia. Pt continues to be treated. Pt and his live in [facility] and he will be returning there upon d/c. A referral with notes was sent there. CM spoke with daughter, Elina. Elina asked for an update of his medical condition and her number was given to her father's hospitalist who agreed to contact her. CM will follow. D/C Plan: [facility]. Date Signed: 08/07/2018 02:13 PM Electronically Signed By:Latasha Whitten
[2018-08-07] MEDS ORDERED: FUROSEMIDE 40 MG/4 ML VIAL IVP ONE (18:06)
--- NOTE | 2018-08-07 18:16 | HOSPPROG ---
Hospitalist Progress Note Assessment/Plan: DIAGNOSES: * acute hypoxemic respiratory failure * acute right-sided congestive heart failure, with history of pulmonary hypertension * abnormal density in left lower lobe on CT scan was not seen on x-ray, may be atelectasis but will reassess with repeat x-ray * COPD, appear stable at present * pleural based cyst lung nodule versus scar left upper lobe; we have no imaging prior to a chest x-ray July [address] scans, so entirely unclear if this is new or old I can find no evidence of a respiratory infectious illness at this time. I do not see anything that looks like left-sided congestive heart failure. There is abnormal density in the left lower lobe that I think is probably atelectasis and that may be contributing to his hypoxemia. His recent hospitalization and surgery with decreased activity etc be triggers for this. He is improved since yesterday with somewhat better oxygenation and this may likely be due to the dose of Lasix that he had as well as incentive spirometry which were using here. Despite diuresis his BUN is lower and creatinine stable PLANS: * Continue IV Lasix diuresis * Recheck electrolytes * Recheck chest x-ray tomorrow * Add Cameron stockings * Fall risk precautions, PT and OT * Follow-up CT scan to reassess his pleural based lung lesion we recommended unless he and family decided that they do not want follow-up care for this process Seen by me today on hospitals rounds as well as multidisciplinary rounds He will need ongoing inpatient IV Lasix diuresis and follow-up monitoring of chest x-ray and oxygenation so will need to changed inpatient at this time SUBJECTIVE: Says he feels somewhat better Can't really recall exactly why he is here No pains or discomfort, not short of breath at rest OBJECTIVE Vitals reviewed: All stable without fever Grove Superintendent, my review: Exam: alert oriented relaxed skin warm dry color ok resps not labored lungs diminished BSs with some loud crackles at left lower lobe posteriorly heart regular abd soft nondistended nontender, bowel sounds present limbs warm, still with some pitting edema at both ankles and feet iv site ok I reviewed his CT scan and chest x-ray images. The CT scan shows some significant densities in the left lower lobe that appeared to be most likely be atelectasis, these are not visible on the chest x-ray. I do not see anything that looks like an acute pneumonia or congestive heart failure in the lungs. The pleural based density at the left upper lobe is of uncertain chronicity or significance at this time but I do not think it is related to his acute presentation. There is no old imaging available here to compare Objective: Vital Signs Temp Pulse Resp BP Pulse Ox 36.8 C 55 L 16 120/66 93 08/07/18 15:37 08/07/18 15:37 08/07/18 15:37 08/07/18 15:37 08/07/18 15:37 Laboratory Results 08/07/18 04:46 08/07/18 04:46 08/06/18 08/07/18 08/08/18 06:59 06:59 06:59 Intake Total 940 Balance 940 PT 13.5 SEC (12.0-15.0) 08/06/18 17:18 INR 1.01 (0.83-1.16) 08/06/18 17:18 - Time Spent With Patient Time Spent with Patient: greater than 35 minutes Time Spent with Patient: Greater than 35 minutes spent on this patients care, greater than 50% of time spent counseling, educating, and coordinating care regarding the above mentioned plan. ICD10 Worksheet Patient Problems: Problems Problem Status Onset Acute respiratory failure Acute Pneumonia Acute Chest pain Acute Dizziness Acute Pre-syncope Acute
[2018-08-07] MEDS ORDERED: PSYLLIUM METAMUCIL 1 PKT PO PRN (22:30)
[2018-08-08] MEDS: HEPARIN 5,000 UNIT/0.5 ML INJ SC SCH ×2 (04:59→19:38)
--- NOTE | 2018-08-08 09:20 | PDMN ---
Medical Necessity Medical necessity: [facility] Pulmonary Disease and M190 Heart Failure: 87 yo w/ acute hypoxemic respiratory failure, acute right-sided congestive heart failure , with history of pulmonary hypertension and abnormal density in left lower lobe on CT scan. Pt requires another MN for IV Lasix diuresis, electrolyte checks, additional CXR, pt is fall risk, PT/OT ordered, Still requiring O2 to maintain sats>90%. Hx CAD, Carotid stenosis with recent carotid endarterectomy. Carotid body mass. Orthostasis. Chronic kidney disease stage 3 with baseline serum creatinine 1.3-1.5. 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 Change to IP status 08/07/18@204 per MD order
[2018-08-08] MEDS: SERTRALINE HCL 50 MG TAB PO SCH (10:25)
[2018-08-08] MEDS: PREGABALIN 50 MG CAP PO SCH (10:25)
[2018-08-08] MEDS: ATORVASTATIN CALCIUM 40 MG TAB PO SCH (10:25)
[2018-08-08] MEDS: ASPIRIN EC 81 MG TAB PO SCH (10:25)
[2018-08-08] MEDS: CETIRIZINE 10 MG TAB PO SCH (10:25)
[2018-08-08] MEDS: FUROSEMIDE 20 MG/2 ML VIAL IVP SCH (10:26)
--- NOTE | 2018-08-08 14:53 | PDIAF ---
- Diagnosis Diagnosis: Acute right-sided heart failure, dementia, gait instability Code Status: Full Code - Medication Management Discharge Medications: Medications to Continue on Transfer Albuterol [Proventil Inhaler HFA (*)] 1 - 2 puffs IH Q4H PRN 07/26/18 [Last Taken 07/30/18] Aspirin EC [Aspirin EC 81 mg (*)] 81 mg PO DAILY 07/26/18 [Last Taken 08/06/18] Atorvastatin Calcium [Lipitor 40 mg (*)] 40 mg PO DAILY 07/26/18 [Last Taken ] Magnesium Carb/Aluminum Hydrox [Gaviscon Es Tablet Chew] 2 each PO Q6H PRN 07/26 [Last Taken 07/30/18] Pregabalin [Lyrica 50mg (*)] 50 mg PO BID 07/26/18 [Last Taken 08/06/18 08:00] Psyllium Husk/Aspartame [Metamucil Fiber Singles Packet] 3.4 gm PO DAILY PRN 01/08 [Last Taken 07/30/18] Sertraline HCl [Zoloft 50mg (*)] 50 mg PO DAILY 07/26/18 [Last Taken 08/06/18] Loratadine 10 mg PO DAILY 07/31/18 [Last Taken 08/06/18] oxyCODONE/APAP 5/325 [Percocet 5/325 (*)] 1 - 2 tab PO Q4HRS PRN #20 tab [Last Taken 08/06/18 09:00 2 TABS] Furosemide [Lasix 20 MG (*)] 20 mg PO Q2D #30 tab 08/08/18 [Last Taken Unknown] Discharge Medications: Refer to the Discharge Home Medication list for PRN reason. - Orders Services needed: Registered Nurse, Certified Network Diagnostic Support Specialist, Master Catalogue Maker Isolation Type: None Oxygen: P.r.n. For shortness of breath or hypoxemia Diet Recommendation: sodium restricted Diet Texture: Regular Texture Diet Weigh Patient: 3 times weekly Additional Instructions: Consider repeat CT scan chest in 3 months for re-evaluation of possible right upper lobe nodule - Labs/Radiology BMP Date: 08/15/18 - Follow Up Care Current Providers and Referrals: NONE *PRIMARY CARE P,. [Unknown] - As per Instructions
--- NOTE | 2018-08-08 15:12 | PDDCSUM ---
Discharge Summary Discharge Summary: DISCHARGE DIAGNOSES: * acute right sided congestive heart failure * acute hypoxemic respiratory failure due to above * pulmonary hypertension and tricuspid regurgitation * COPD stable at this time * dimension * incidental finding on CT scan chest of right upper lobe lung abnormality, possible nodule versus scar PROCEDURES: CT scan chest HOSPITAL COURSE SUMMARY: This patient with a long history of COPD comes into the hospital with some acute shortness of breath and hypoxemia. He had no cough, fever chest pain or leg pain. His legs were both edematous. There was if anything minimal pulmonary edema. The patient is had no acute changes in echocardiogram with good left ventricular function. He did have pulmonary hypertension and tricuspid regurgitation noted.. There is no wheezing. The patient was admitted to the hospital and treated with IV diuresis to which he responded quite well. His initial oxygen saturation on room air was at 77% and required oxygen with that. At this time discharge he is having room air oxygen saturations in the 90s on and is able to the ambulate without any dyspnea or other trouble. At this point it is felt that he is stable for discharge though it is felt that he will need ongoing low-salt diet, and diuretic therapy to prevent recurrent right-sided congestive heart failure. He may intermittently need some oxygen. PENDING TEST RESULTS: None MEDICATION CHANGES: Addition of Lasix 20 mg every other day FOLLOW-UP PLAN: He will return to [facility] where he lives today and be under the care of the rounding staff that facility recommend consider possible follow-up CT scan chest to reassess right upper lobe nodule versus scar in 3 months, with patient goals of care considered Greater than 35 minutes bedside and care coordination time today
--- NOTE | 2018-08-08 15:18 | ASMTCMCOM ---
CM Note CM Note Notes: Patient plan of care reviewed in rounds. Doing well likely to dc today. Also seen by Dr. orr. Call to Chauncey at [facility]. Final orders via [facility]. RN aware of where to call report. Spoke with the patient's daughter Lily who will come and pick the patient up and transport to . CM available should other needs arise. Plan: DC to [facility]. Date Signed: 08/08/2018 03:16 PM Electronically Signed By:Shelley Woodruff RN
[2018-08-08 17:19] VITALS: BP 80/46
== END 2018-08-08 17:22 | DRG 189 ==
LOC: EDUNIT# → F1N 21:28 → OBSVTOIN 08-07 20:33
PROVIDERS: ADMIT Internal Medicine; ATTEND Internal Medicine
DX: J96.01 Acute respiratory failure with hypoxia (principal); I50.811 Acute right heart failure; J44.9 Chronic obstructive pulmonary disease, unspecified; I27.20 Pulmonary hypertension, unspecified; I34.0 Nonrheumatic mitral (valve) insufficiency; I25.10 Atherosclerotic heart disease of native coronary artery without angina pectoris; N18.3 Chronic kidney disease, stage 3 (moderate); R91.8 Other nonspecific abnormal finding of lung field; I25.2 Old myocardial infarction; Z87.01 Personal history of pneumonia (recurrent); Z87.891 Personal history of nicotine dependence
CPT/HCPCS: 84484-PO; 92523-GN; 97116-GP; 97162-GP; 97166-GO; 97530-GO; 97535-GO; G0378; G8978-GP-CK; G8979-GP-CI; G8980-GP-CI; G8987-GO-CI; G8988-GO-CI; G8989-GO-CI; G9165-GN-CK; G9166-GN-CJ; J1644; J1940; Q9967

== ENCOUNTER 2018-11-28 09:31 | Inpatient (IN) | payer OTHER ==
[2018-11-28] MEDS ORDERED: PROTAMINE SULFATE 50 MG/5 ML VIAL IVP ONE (09:48)
[2018-11-28] MEDS ORDERED: BUPIVACAINE 0.5% 30 ML SDV ONE (09:49)
[2018-11-28] MEDS ORDERED: THROMBIN (BOVINE) 20,000 UNIT SPRAY TP ONE (09:49)
[2018-11-28] MEDS ORDERED: ceFAZolin 2 GM/DEXTROSE 100 ML IV ONE (09:59)
[2018-11-28] MEDS ORDERED: LR 1,000 ML IV ONE (09:59)
--- NOTE | 2018-11-28 10:33 | PDHPUP ---
History & Physical Update H&P update statement: This history and physical update is based on an assessment of the patient which was completed after admission or registration (within 24 hours), but prior to the surgery/procedure. H&P update: H&P reviewed & patient examined, no change in patient's condition since H&P completed
[2018-11-28 10:47] LABS: PLATELET COUNT 109 10^3/uL (150-400)
[2018-11-28] MEDS ORDERED: PROPOFOL/EMULSION 500 MG/50 ML BOTTLE IV ONE ×2 (10:54→11:00)
[2018-11-28] MEDS ORDERED: REMIFENTANIL HCL 1 MG VIAL ONE ×2 (10:56)
[2018-11-28] MEDS ORDERED: NEOSTIGMINE METHYLSULFATE 5 MG/5 ML SYR ONE ×2 (11:25)
[2018-11-28] MEDS ORDERED: GLYCOPYRROLATE 0.2 MG/1 ML VIAL ONE (11:27)
[2018-11-28] MEDS ORDERED: VASOPRESSIN 20 UNIT/ML VIAL ONE (11:31)
[2018-11-28] MEDS ORDERED: DEXAMETHASONE 4 MG/ML VIAL ONE (11:34)
[2018-11-28] MEDS ORDERED: ONDANSETRON 4 MG/2 ML VIAL ONE (11:34)
[2018-11-28] MEDS ORDERED: NALOXONE HCL 0.4 MG/ML INJ IVP PRN (11:55)
[2018-11-28] MEDS ORDERED: ALBUTEROL 3 ML DEYVIAL IH PRN (11:55)
[2018-11-28] MEDS ORDERED: ONDANSETRON 4 MG/2 ML VIAL IVP PRN ×2 (11:55→13:54)
[2018-11-28] MEDS ORDERED: fentaNYL 100 MCG/2 ML INJ IVP PRN (11:55)
--- NOTE | 2018-11-28 11:55 | PDANEPAE ---
ANE History of Present Illness L CEA ANE Past Medical History - Cardiovascular History Hx Hypertension: Yes Hx Arrhythmias: No Hx Chest Pain: No Hx Coronary Artery / Peripheral Vascular Disease: Yes Hx CHF / Valvular Disease: No Hx Palpitations: No Cardiovascular History Comment: cad, dizzy spells. diastolic dysfunction - Pulmonary History Hx COPD: Yes Hx Asthma/Reactive Airway Disease: No Hx Recent Upper Respiratory Infection: Yes Hx Oxygen in Use at Home: No O2 in Use at Home (L/minute): 2L nc Hx Sleep Apnea: No Sleep Apnea Screening Result - Last Documented: Positive - Neurologic History Hx Cerebrovascular Accident: No Hx Seizures: No Hx Dementia: Yes Neurologic History Comment: pt has dementia - Endocrine History Hx Diabetes: No - Renal History Hx Renal Disorders: Yes Renal History Comment: CRI - Liver History Hx Hepatic Disorders: No - Neurological & Psychiatric Hx Hx Neurological and Psychiatric Disorders: Yes Neurological / Psychiatric History Comment: Dementia. depression - Cancer History Hx Cancer: Yes Cancer History Comment: skin cancer - Congenital Disorder History Hx Congenital Disorders: No - GI History Hx Gastrointestinal Disorders: Yes Gastrointestinal History Comment: GERD - Other Health History Other Health History: none - Chronic Pain History Chronic Pain: Yes (lower back) - Surgical History Prior Surgeries: none in past 30 years. hand surgery, cysts removed bilaterly from neck. CEA 08/10 ANE Review of Systems Review of Systems: - Exercise capacity METS (RN): 3 METS ANE Patient History - Allergies Allergies/Adverse Reactions: No Known Allergies Allergy (Verified 11/27/18 17:36) - Home Medications Home Medications: Albuterol [Proventil Inhaler HFA (*)] 07/26/18 [Last Taken 07/30/18] Aspirin EC [Aspirin EC 81 mg (*)] 07/26/18 [Last Taken 08/06/18] Atorvastatin Calcium [Lipitor 40 mg (*)] 07/26/18 [Last Taken 08/06/18] Magnesium Carb/Aluminum Hydrox [Gaviscon Es Tablet Chew] 07/26/18 [Last Taken 07/30/18] Pregabalin [Lyrica 50mg (*)] 07/26/18 [Last Taken 08/06/18 08:00] Psyllium Husk/Aspartame [Metamucil Fiber Singles Packet] 07/26/18 [Last Taken 07/30/18] Sertraline HCl [Zoloft 50mg (*)] 07/26/18 [Last Taken 08/06/18] Loratadine 07/31/18 [Last Taken 08/06/18] Furosemide [Lasix 20 MG (*)] 11/27/18 [Last Taken Unknown] Metoprolol Tartrate 11/27/18 [Last Taken Unknown] oxyCODONE/APAP 5/325 [Percocet 5/325 (*)] 11/27/18 [Last Taken Unknown] - NPO status NPO Since - Liquids (Date): 11/28/18 NPO Since - Liquids (Time): 05:00 NPO Since - Solids (Date): 11/27/18 NPO Since - Solids (Time): 19:30 - Smoking Hx Smoking Status: Former smoker - Family Anes Hx Family Hx Anesthesia Complications: none ANE Labs/Vital Signs - Labs Result Diagrams: 11/28/18 10:20 11/28/18 10:20 - Vital Signs Blood Pressure: 166/83 Heart Rate: 54 Respiratory Rate: 18 O2 Sat (%): 88 Height: 180.34 cm Weight: 89.358 kg ANE Physical Exam - Airway Neck exam: FROM Mallampati Score: Class 2 Mouth exam: normal dental/mouth exam - Pulmonary Pulmonary: clear to auscultation - Cardiovascular Cardiovascular: regular rate and rhythym - ASA Status ASA Status: III ANE Anesthesia Plan Anesthesia Plan: general endotracheal anesthesia Total IV Anesthesia: Yes
[2018-11-28] MEDS ORDERED: niCARdipine/NACL/200 ML BAG IV ONE (13:00)
--- NOTE | 2018-11-28 13:27 | POSTANESTH ---
Post Anesthetic Evaluation Cardiovascular Status: Normal, Stable Respiratory Status: Normal, Stable Level of Consciousness/Mental Status: Can Participate in Eval, Alert and Oriented Pain Control: Adequate, Prn Tx Ordered Nausea/Vomiting Control: Adequate, Prn Tx Ordered Complications Possibly Related to Anesthesia: None Noted (Moving all four extremities)
[2018-11-28] MEDS ORDERED: HYDROmorphONE/DILAUDID 1 MG/ML INJ IVP PRN (13:54)
[2018-11-28] MEDS ORDERED: ENALAPRILAT DIHYDRATE 1.25 MG/ML VIAL IVP PRN (13:54)
[2018-11-28] MEDS ORDERED: NS 1,000 ML IV SCH (14:00)
--- NOTE | 2018-11-28 14:05 | POSTOPPROG ---
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
--- NOTE | 2018-11-28 14:25 | PDMN ---
Medical Necessity Medical necessity: [facility] [place] S300 Carotid Endarterectomy, 1 day: 88 yo s/p L CEA for critical carotid stenosis, CPT 26771, IP only
--- NOTE | 2018-11-28 15:45 | ASMTLACE ---
CARLOS Acuity / Level of Answers: Yes Care: Did the patient have an inpatient admission? Comorbidities - select Answers: Chronic pulmonary disease all that apply Coronary Artery Disease Dementia Opioid dependence / Chronic pain Other Notes: HTN # of Emergency department Answers: 3-4 visits in the last 6 months Social determinants Answers: Mental health diagnosis (anxiety, depression, pers onality disorders, etc.) Score: 21 Date Signed: 11/28/2018 03:44 PM Electronically Signed By:Ina Pascual
[2018-11-28] MEDS ORDERED: SODIUM CL NASAL 45 ML BTL NS PRN (17:27)
[2018-11-28] MEDS ORDERED: ALBUTEROL 60 PUFFS/8 GM MDI IH PRN (17:27)
[2018-11-28] MEDS ORDERED: BISACODYL 5 MG EC TAB PO PRN (17:27)
--- NOTE | 2018-11-28 17:29 | SOAPPROG ---
SOAP Progress Note Assessment/Plan: Assessment/Plan: 88 Y M s/p L CEA, hx of carotid body tumor resection, POD#1. Doing well. Pain controlled. Neuro grossly intact. Wounds intact. AFVSS. Continue routine post op care. 11/28/18 17:28 Objective: Vital Signs Temp Pulse Resp BP Pulse Ox 36.9 C 59 L 14 127/57 H 95 11/28/18 14:35 11/28/18 17:00 11/28/18 17:00 11/28/18 17:00 11/28/18 17:00 Laboratory Results 11/28/18 10:20 11/28/18 10:20 11/27/18 11/28/18 11/29/18 05:59 05:59 05:59 Intake Total 950 Output Total 30 Balance 920 ICD10 Worksheet Patient Problems: Problems Problem Status Onset Acute respiratory failure Acute Chest pain Acute Dizziness Acute Pneumonia Acute Pre-syncope Acute chronic disease mgmt/transitional care Acute
[2018-11-28] MEDS: OXYCODONE/APAP 5/325 TAB PO PRN (20:26)
[2018-11-29] MEDS ORDERED: CETIRIZINE 10 MG TAB PO PRN (09:00)
[2018-11-29] MEDS ORDERED: PSYLLIUM METAMUCIL 1 PKT PO PRN (09:00)
[2018-11-29] MEDS: OXYCODONE/APAP 5/325 TAB PO PRN (09:06)
[2018-11-29] MEDS: PREGABALIN 50 MG CAP PO SCH (09:07)
[2018-11-29] MEDS: ATORVASTATIN CALCIUM 40 MG TAB PO SCH (09:09)
[2018-11-29] MEDS: SERTRALINE HCL 100 MG TAB PO SCH (09:09)
[2018-11-29] MEDS: ASPIRIN EC 81 MG TAB PO SCH (09:10)
[2018-11-29] MEDS: METOPROLOL SUCCINATE XR 25 MG TAB PO SCH (09:10)
[2018-11-29] MEDS: FLUTICASONE NASAL 120 SPRAYS/16 GM MDI EACHNARE SCH (09:12)
--- NOTE | 2018-11-29 10:24 | SOAPPROG ---
SOAP Progress Note Assessment/Plan: Assessment/Plan: 88 Y M s/p L CEA, hx of carotid body tumor resection, POD#1. Doing well. Pain controlled. Neuro grossly intact. Wounds intact. AFVSS. Dispo: SDU. Likely dc to home tomorrow. Also seen by Dr. Oh today. S: no complaints. O: alert, nad inc cdi ctab rrr abd soft neuro grossly intact. 11/29/18 10:23 Objective: Vital Signs Temp Pulse Resp BP Pulse Ox 36.4 C 50 L 13 116/74 98 11/29/18 08:00 11/29/18 08:00 11/29/18 08:00 11/29/18 08:00 11/29/18 08:00 Laboratory Results 11/29/18 06:30 11/29/18 06:30 11/28/18 11/29/18 11/30/18 05:59 05:59 05:59 Intake Total 2202 Output Total 1480 Balance 722 ICD10 Worksheet Patient Problems: Problems Problem Status Onset Acute respiratory failure Acute Chest pain Acute Dizziness Acute Pneumonia Acute Pre-syncope Acute chronic disease mgmt/transitional care Acute
[2018-11-29] MEDS: ACETAMINOPHEN 500 MG TAB PO PRN (12:57)
--- NOTE | 2018-11-29 15:45 | ASMTCMCOM ---
CM Note CM Note Notes: Pt is a 88 y/o man admitted for a carotid body tumor resection. Pt will most likely d/c tomorrow without any d/c needs. Pt is being followed by transitional care. CM available for changes. Plan: Independent Date Signed: 11/29/2018 03:45 PM Electronically Signed By:CYRIL Millan
[2018-11-30] MEDS: ACETAMINOPHEN 500 MG TAB PO PRN (03:02)
[2018-11-30] MEDS: POLYETHYLENE GLYCOL 3350 17 GM PKT PO SCH (08:40)
[2018-11-30] MEDS: ENOXAPARIN 40 MG/0.4 ML SYR SC SCH (08:40)
[2018-11-30] MEDS: SERTRALINE HCL 100 MG TAB PO SCH (08:41)
[2018-11-30] MEDS: PREGABALIN 50 MG CAP PO SCH (08:41)
[2018-11-30] MEDS: ASPIRIN EC 81 MG TAB PO SCH (08:41)
[2018-11-30] MEDS: ATORVASTATIN CALCIUM 40 MG TAB PO SCH (08:41)
[2018-11-30] MEDS: FLUTICASONE NASAL 120 SPRAYS/16 GM MDI EACHNARE SCH (08:42)
--- NOTE | 2018-11-30 09:53 | SOAPPROG ---
SOAP Progress Note Assessment/Plan: Assessment: 88 Y M s/p L CEA, hx of carotid body tumor resection, POD#2 Urinary retention. Per RN, pt has been straight cathed several times per protocol. Flomax ordered. Bradycardia. Hold home metoprolol. Constipation. Bisacodyl and miralax have been given. If unsuccessful, will try suppository. Dispo: continue inpt status S: C/o L neck pain and bilateral shoulder pain. O: Alert Afebrile Bradycardic in 50s Neck: L sided incision cdi. Surrounding ecchymosis present No increased WOB Abdomen soft, nontender Neuro: CN 2-12 grossly intact 11/30/18 09:47 Objective: Vital Signs Temp Pulse Resp BP Pulse Ox 36.8 C 53 L 15 125/74 H 92 11/30/18 07:04 11/30/18 07:04 11/30/18 07:04 11/30/18 07:04 11/30/18 07:04 Laboratory Results 11/29/18 06:30 11/29/18 06:30 11/29/18 11/30/18 12/01/18 05:59 05:59 05:59 Intake Total 2202 1300 Output Total 1480 2120 275 Balance 722 -820 -275 ICD10 Worksheet Patient Problems: Problems Problem Status Onset Acute respiratory failure Acute Chest pain Acute Dizziness Acute Pneumonia Acute Pre-syncope Acute chronic disease mgmt/transitional care Acute
[2018-11-30] MEDS: METOPROLOL SUCCINATE XR 25 MG TAB PO SCH (10:11)
--- NOTE | 2018-11-30 10:12 | GOP ---
[f rep st] OPERATIVE REPORT DATE OF OPERATION: 11/28/2018 SURGEON: Kurtis Oh MD PREOPERATIVE DIAGNOSIS: 1. Critical left carotid stenosis. 2. Recurrent left carotid body tumor. POSTOPERATIVE DIAGNOSIS: 1. Critical left carotid stenosis. 2. Recurrent left carotid body tumor. PROCEDURE PERFORMED: 1. Left carotid endarterectomy. 2. Excisional biopsy of neck mass. FINDINGS: Patient was found to have an ulcerated tight plaque at the origin of his internal carotid artery. He had no EEG changes. 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 DESCRIPTION OF PROCEDURE: The patient was taken to the operating room where he received a satisfacto ry general endotracheal anesthesia by Dr. Galvan, placed in supine position, prepped and draped in the usual sterile fashion. The patient had been systemically heparinized prior to the induction of anes thesia. Incision was made along the left sternocleidomastoid muscle through a previous old scar. Di ssection was extended down through the subcutaneous tissue and platysma and superficial fascia. The carotid arterial tree was exposed. It was dissected free from scar tissue. Common carotid, internal carotid, external carotid arteries were all dissected free and controlled with vessel loops. The ne ck mass was dissected free, and hemostasis was obtained with hemoclips and that was removed and was s uspicious for recurrent paraganglioma. After adequate exposure was achieved, the patient was given additional heparin, and after adequate ci rculation time, the vessels were occluded. An arteriotomy was made in the common carotid artery and extended up through the plaque which was quite ugly and ulcerated and up into the internal carotid ar ammon above the plaque which was partially calcified. Good backflow was present. There were no EEG c hanges. An expeditious endarterectomy was then done, cleaning out this tight plaque. All debris was irrigated free and removed from the vessels, and all vessels were flushed. The arteriotomy was then closed with a Dacron patch and a running Hemashield 7 suture. Flow was first established through th e external carotid and then back through the internal carotid. Again, there were no EEG changes. Th e suture line was reinforced in [address] with a 6-0 Prolene suture, but otherwise was hemostatic. Hep jaden was reversed with protamine. The wound was sprayed with some topical thrombin and closed in lay ers using 2-0 Vicryl for the deep fascia, 3-0 Vicryl for the platysma and subcutaneous tissue, and 4- 0 Monocryl subcuticular stitch for the skin. The wound was infiltrated with 0.5% Marcaine. He tolerated the procedure well. Blood loss was less than 100 cc. There were no complications. Ass istant was NICOLE Greenberg. Both the plaque and the neck mass were sent to Pathology. He tolerated the procedure well. He awoke moving all extremities and neurologically intact. /[id number]/MODL
[2018-11-30] MEDS: TAMSULOSIN HCL 0.4 MG CAP PO SCH (10:30)
--- NOTE | 2018-11-30 15:53 | PDCONSULT ---
[employer] Note: RFC: urinary retention Requested by Kurtis Oh MD HPI 88M s/P CEA 2 days ago w post op retention. hx CAD, COPD, CKD, CHF. Not voiding yesterday on own, required straight cath multiple times. Had blood seen w one straight cath. Today now voiding on own, last void 200ml clear yellow. Bladder scann PVRs today all <400ml. Denies hx voiding problems in past - nocturia x 1, no frequency, urgency. Good stream. Has never seen blood in urine until now. No BM since admission. ROS 10pt ROS performed, as stated in HPI, otherwise neg. PMH CAD, carotid body tumors, COPD, CKD, CHF FH/SH noncontributory PE AFVSS Gen NAD A&O CV regular Lungs normal effort Abd soft, obese Ext warm old blood at meatus. Circ phallus, normal glans, no scrotal edema. Bilaterally descended testicles, NTTP. A/P Urinary retention now voiding on own w elevated but improving residuals. Likely 2/2 recent anes, pain meds, constipation. Resolving. On flomax - continue at [place]. Treat constipation. Discussed timed voiding q2-3h, checking PVR bladder scans after each void. If remains <350-400ml, then no need to straight cath or place benites. If >400ml, the place 18F coude catheter and home w benites. Can follow up in my office next week for voiding trial. He is not willing to do CIC at home. Please call w questions. Mary Frances MD Urology [facility]
[2018-11-30] MEDS ORDERED: BISACODYL 10 MG SUPP PR PRN (16:15)
[2018-12-01] MEDS: PREGABALIN 50 MG CAP PO SCH (10:16)
[2018-12-01] MEDS: ASPIRIN EC 81 MG TAB PO SCH (10:16)
[2018-12-01] MEDS: ATORVASTATIN CALCIUM 40 MG TAB PO SCH (10:16)
[2018-12-01] MEDS: SERTRALINE HCL 100 MG TAB PO SCH (10:17)
[2018-12-01] MEDS: METOPROLOL SUCCINATE XR 25 MG TAB PO SCH (10:17)
[2018-12-01] MEDS: ENOXAPARIN 40 MG/0.4 ML SYR SC SCH (10:19)
[2018-12-01] MEDS: TAMSULOSIN HCL 0.4 MG CAP PO SCH (10:19)
[2018-12-01] MEDS: POLYETHYLENE GLYCOL 3350 17 GM PKT PO SCH (10:21)
--- NOTE | 2018-12-01 10:21 | ASDISCHSUM ---
Discharge Information Plan Status:SNF Medically Cleared to Leave:11/30/2018 Discharge Date:11/30/2018 CM D/C Disposition:Snf Facility ADT D/C Disposition:Home, Routine, Self-Care Projected Discharge Date:12/01/2018 11:00 AM Transportation at D/C:Family Discharge Delay Reason: Follow-Up Date:12/01/2018 11:00 AM Discharge Slot: Final Diagnosis: Placement Information Referral Type:Assisted Living Residence Referral ID:[id number] Provider Name: Address 1: Phone Number: Address 2: Fax Number: City: Selection Factors: State: Referral Type:*Skilled Nursing/SNF Referral ID:[id number] Provider Name:[facility] Address 1:[address] Address 2: City:[place] Selection Factors: State:[place] Patient Contact Information Contact Name:MAURA Relationship:Daughter Address:[address] Work Phone: City:[place] Phone: State/Zip Code:[place] [address] Email: Financial Information Financial Class:Medicare Primary Plan Desc:MEDICARE INPATIENT Primary Plan Number:[id number] Secondary Plan Desc:[facility] Secondary Plan Number:[id number] Assessment Information LACE LACE Acuity / Level of Answers: Yes Care: Did the patient have an inpatient admission? Comorbidities - select Answers: Chronic pulmonary disease all that apply Coronary Artery Disease Dementia Opioid dependence / Chronic pain Other Notes: HTN # of Emergency department Answers: 3-4 visits in the last 6 months Social determinants Answers: Mental health diagnosis (anxiety, depression, pers onality disorders, etc.) Score: 21 Date Signed: 11/28/2018 03:44 PM Electronically Signed By:Ina Pascual [facility] CM Progress Note CM Note CM Note Notes: Pt is a 88 y/o man admitted for a carotid body tumor resection. Pt will most likely d/c tomorrow without any d/c needs. Pt is being followed by transitional care. CM available for changes. Plan: Independent Date Signed: 11/29/2018 03:45 PM Electronically Signed By:CYRIL Millan Case Management Discharge Plan Note Case Management Discharge Discharge Order Complete? Answers: Yes Patient to Obtain Answers: Other Notes: [facility] Medications Transportation Arranged Answers: Family/Friends Faxed Final Orders Answers: Yes Notes: to [facility] Discharge Comments Notes: 12/01/2018 Case Management Note Pt d/c home to [facility] [place] resuming all previous services. Pt reports RN visits him at home 3x/week. No need to increase services . Faxed final orders. Daughter to transport home. Date Signed: 12/01/2018 10:21 AM Electronically Signed By:Kristan Mcdonough RN [facility] CM Progress Note CM Note CM Note Notes: 12/01/2018 Case Management Note Phone call from Liza at [facility]. Pt lives in [facility] care. Liza is placing patient in [facility] at d/c. Faxed over interagency and final d/c orders. Daughter to transport. Case Management d/c poc: [facility] re[facility] than transitioning to [facility] care. Date Signed: 12/01/2018 11:36 AM Electronically Signed By:Kristan Mcdonough RN Intervention Information Intervention Type:*IM-Signed Date of Service:12/01/2018 10:02 AM Patient Type:Inpatient Staff Member:Ina Pascual Hours: Discipline: Severity: Comment:
--- NOTE | 2018-12-01 10:22 | ASMTDCNOTE ---
Case Management Discharge Discharge Order Complete? Answers: Yes Patient to Obtain Answers: Other Notes: [facility] Medications Transportation Arranged Answers: Family/Friends Faxed Final Orders Answers: Yes Notes: to [place] Discharge Comments Notes: 12/01/2018 Case Management Note Pt d/c home to [facility] resuming all previous services. Pt reports RN visits him at home 3x/week. No need to increase services . Faxed final orders. Daughter to transport home. Date Signed: 12/01/2018 10:21 AM Electronically Signed By:Kristan Mcdonough RN
[2018-12-01] MEDS: FLUTICASONE NASAL 120 SPRAYS/16 GM MDI EACHNARE SCH (10:23)
--- NOTE | 2018-12-01 11:18 | PDIAF ---
- Diagnosis Code Status: Full Code - Medication Management Discharge Medications: electronically signed and located in the Home Medication List. - Orders Services needed: Registered Nurse, Physical Therapy, Occupational Therapy Isolation Type: None Diet Recommendation: no restrictions on diet Diet Texture: Regular Texture Diet Additional Instructions: Avoid heavy lifting. You may shower, but do not soak in a pool or tub. Rx for Percocet for pain. Take a stool softener as needed to avoid constipation. Follow up with urology next week. Discontinue your Metoprolol and follow up with your primary care doctor next week. Call to make a follow up appointment with CHRIS Farrell or NICOLE Son for 10 days from now. Call with fever, chills or any stroke-like symptoms. - Follow Up Care Current Providers and Referrals: Mary Frances MD [Medical Doctor] - follow up in 1 week Mariama Jane MD [Primary Care Provider] - Kurtis Oh MD [Medical Doctor] - follow up in 10 days
--- NOTE | 2018-12-01 11:37 | ASMTCMCOM ---
CM Note CM Note Notes: 12/01/2018 Case Management Note Phone call from Liza at [facility]. Pt lives in [facility]. Liza is placing patient in [facility] at d/c. Faxed over interagency and final d/c orders. Daughter to transport. Case Management d/c poc: [facility] rehab than transitioning to long term care pharmacist care. Date Signed: 12/01/2018 11:36 AM Electronically Signed By:Kristan Mcdonough RN
[2018-12-01 13:35] VITALS: BP 114/61
== END 2018-12-01 13:55 | DRG 39 ==
LOC: F3N 09:31 → F2N 14:12 → F2W 11-29 16:44
PROVIDERS: ADMIT Surgery; ATTEND Surgery
PROC: 03CL0ZZ Extirpation of Matter from Left Internal Carotid Artery, Open Approach (ICD-10-PCS; principal; 2018-11-28 10:30)
DX: I65.22 Occlusion and stenosis of left carotid artery (principal); D44.6 Neoplasm of uncertain behavior of carotid body; I10 Essential (primary) hypertension; I25.10 Atherosclerotic heart disease of native coronary artery without angina pectoris; J44.9 Chronic obstructive pulmonary disease, unspecified; F03.90 Unspecified dementia, unspecified severity, without behavioral disturbance, psychotic disturbance, mood disturbance, and anxiety
CPT/HCPCS: C1768; J0690; J1100; J1644; J1650; J2405; J2704; J2710; J2720